=== PATIENT | male | born 1980 | race African-American/Black ===

== ENCOUNTER 2016-08-13 15:57 | Inpatient (IN) | payer OTHER ==
[2016-08-13 16:51] VITALS: BMI 17.2
--- NOTE | 2016-08-13 17:44 | HP ---
CIWA Score - CIWA Score Nausea/Vomitin Muscle Tremors: 4-Moderate,w/Arms Extend Anxiety: 4-Mod. Anxious/Guarded Agitation: 4-Moderately Restless Paroxysmal Sweats: 3 Orientation: 2-Disoriented Date<2 days Tacttile Disturbances: 0-None Auditory Disturbances: 0-None Visual Disturbances: 0-None Headache: 0-None Present CIWA-Ar Total Score: 19 Admission ROS BHS - HPI Chief Complaint: Withdrawal sx. Allergies/Adverse Reactions: Allergies Allergy/AdvReac Type Severity Reaction Status Date / Time No Known Allergies Allergy Verified 08/13/16 17:00 History of Present Illness: 36 y/o man with a long hx. of alcoholism is admitted for detox.Pt. denies previous detox. Exam Limitations: No Limitations - Ebola screening Have you traveled outside of the country in the last 21 days: No Have you had contact with anyone from an Ebola affected area: No Have you been sick,other than usual withdrawal symptoms: No Do you have a fever: No - Review of Systems Constitutional: Diaphoresis EENT: reports: No Symptoms Reported Respiratory: reports: No Symptoms reported Cardiac: reports: No Symptoms Reported GI: reports: Nausea, Abdominal cramping : reports: No Symptoms Reported Musculoskeletal: reports: Back Pain Integumentary: reports: Sweating Neuro: reports: Seizure (1 1/2 year ago), Tremors Endocrine: reports: No Symptoms Reported Hematology: reports: No Symptoms Reported Psychiatric: reports: No Sypmtoms Reported Other Systems: Reviewed and Negative Patient History - Patient Medical History Hx Anemia: No Hx Asthma: No Hx Chronic Obstructive Pulmonary Disease (COPD): No Hx Cancer: No Hx Cardiac Disorders: No Hx Congestive Heart Failure: No Hx Hypertension: No Hx Hypercholesterolemia: Yes (no meds) Hx Pacemaker: No HX Cerebrovascular Accident: No Hx Seizures: Yes (etoh related seizure last 1 yr ago) Hx Dementia: No Hx Diabetes: No Hx Gastrointestinal Disorders: No Hx Liver Disease: No Hx Genitourinary Disorders: No Hx Sexually Transmitted Disorders: No Hx Renal Disease (ESRD): No Hx Thyroid Disease: No Hx Human Immunodeficiency Virus (HIV): No Hx Hepatitis C: No Hx Depression: No Hx Suicide Attempt: No Hx Bipolar Disorder: No Hx Schizophrenia: No Other Medical History: Low back pain by hx. - Patient Surgical History Past Surgical History: No - PPD History Previous Implant?: Yes Documented Results: Negative w/o proof Implanted On Prior [facility] Admission?: No PPD to be Administered?: Yes - Smoking Cessation Smoking history: Current every day smoker Have you smoked in the past 12 months: Yes Aproximately how many cigarettes per day: 10 Hx Chewing Tobacco Use: No Initiated information on smoking cessation: Yes 'Breaking Loose' booklet given: 08/13/16 - Substance & Tx. History Hx Alcohol Use: Yes Hx Substance Use: No Substance Use Type: Alcohol Hx Substance Use Treatment: No - Substances Abused Alcohol Route: Oral Frequency: Daily Amount used: 1/2 PINT ANGEL/ 2 16 OZ CANS Age of first use: 10 Date of Last Use: 08/13/16 Family Disease History - Family Disease History Family Disease History: Other: Father (Alcoholic), Mother (Alcohol use) Admission Physical Exam [facility] - Vital Signs Vital Signs: Vital Signs - 24 hr 08/13/16 16:49 Temperature 98.1 F Pulse Rate 80 Respiratory 18 Rate Blood Pressure 117/86 - Physical General Appearance: Yes: Alcohol on Breath, Thin, Tremorous, Irritable, Sweating , Anxious HEENTM: Yes: Within Normal Limits Respiratory: Yes: Chest Non-Tender, Lungs Clear, Normal Breath Sounds Neck: Yes: Supple Breast: Yes: Breast Exam Deferred Cardiology: Yes: Regular Rhythm, Regular Rate, S1, S2 Abdominal: Yes: Normal Bowel Sounds, Non Tender, Soft Genitourinary: Yes: Within Normal Limits Back: Yes: Within Normal Limits Musculoskeletal: Yes: Within Normal Limits Extremities: Yes: Tremors Neurological: Yes: Fully Oriented, Alert Integumentary: Yes: Diaphoresis Lymphatic: Yes: Within Normal Limits - Diagnostic (1) Alcohol dependence with uncomplicated withdrawal Current Visit: Yes Status: Acute (2) Low back pain Current Visit: Yes Status: Acute Qualifiers: Chronicity: chronic Back pain laterality: bilateral Sciatica presence: with sciatica Sciatica laterality: bilateral sciatica Qualified Code(s): M54.42 - Lumbago with sciatica, left side; M54.41 - Lumbago with sciatica, right side; G89.29 - Other chronic pain Cleared for Admission [facility] - Detox or Rehab [facility] Level of Care: Medically Managed Detox Regimen/Protocol: Librium [facility] Breath Alcohol Content Breath Alcohol Content: 0.103 Urine Drug Screen - Results Drug Screen Negative: Yes
[2016-08-13] MEDS ORDERED: IBUPROFEN 400 MG TABLET (FP) PO PRN (17:51)
[2016-08-13] MEDS ORDERED: LOPERAMIDE HCL 2 MG CAPSULE PO PRN (17:51)
[2016-08-13] MEDS ORDERED: MAGNESIUM HYDROX 2400MG/30ML ORAL SUSPENSION 30 ML CUP PO PRN (17:51)
[2016-08-13] MEDS ORDERED: ACETAMINOPHEN 325 MG TABLET (FP) PO PRN (17:51)
[2016-08-13] MEDS ORDERED: MENTHOL/PHENOL 1 EACH UD MM PRN (17:51)
[2016-08-13] MEDS ORDERED: guaiFENesin/D-METHORPHAN HB 10 ML UNIT-DOSE CUPS PO PRN (17:51)
[2016-08-13] MEDS ORDERED: P-EPHED 60MG/TRIPROLIDI 2.5MG TABLET PO PRN (17:51)
[2016-08-13] MEDS ORDERED: MAGNESIUM CITRATE 300 ML BOTTLE PO PRN (17:51)
[2016-08-13] MEDS ORDERED: MAG HYDROX/AL HYDROX/SIMETH 30 ML UNIT-DOSE CUP PO PRN (17:51)
[2016-08-13] MEDS ORDERED: diphenhydrAMINE HCL 50 MG CAPSULE PO PRN (17:51)
[2016-08-13] MEDS ORDERED: chlordiazePOXIDE HCL 25 MG CAPSULE PO ONE (18:15)
[2016-08-13] MEDS: NICOTINE POLACRILEX 2 MG GUM BC PRN (19:19)
[2016-08-13] MEDS: NICOTINE 21 MG/24 HOURS TOPICAL PATCH TD SCH (19:21)
[2016-08-13] MEDS: chlordiazePOXIDE HCL 25 MG CAPSULE PO SCH (22:37)
[2016-08-13] MEDS: THIAMINE HCL 100 MG TABLET (FP) PO SCH (22:37)
[2016-08-14] MEDS: chlordiazePOXIDE HCL 25 MG CAPSULE PO SCH ×4 (05:40→22:38)
[2016-08-14] MEDS: hydrOXYzine PAMOATE 50 MG CAPSULE (FP) PO PRN (07:57)
[2016-08-14] MEDS: chlordiazePOXIDE HCL 25 MG CAPSULE PO PRN (07:58)
--- NOTE | 2016-08-14 09:10 | PN ---
BHS CIWA - CIWA Score Nausea/Vomitin Muscle Tremors: 3 Anxiety: 3 Agitation: 3 Paroxysmal Sweats: 1-Minimal Palms Moist Orientation: 0-Oriented Tacttile Disturbances: 1-Very Mild Itch/Numbness Auditory Disturbances: 1-Very Mild Visual Disturbances: 1-Very Mild Sensitivity Headache: 2-Mild CIWA-Ar Total Score: 18 BHS Progress Note (SOAP) Subjective: ALERT,IRRITABLE,ANXIOUS,INTERRUPTED SLEEP Objective: 08/14/16 09:07 08/14/16 09:07 Vital Signs Temperature 97.5 F L 08/14/16 06:46 Pulse Rate 70 08/14/16 06:46 Respiratory Rate 16 08/14/16 06:46 Blood Pressure 85/59 08/14/16 06:46 O2 Sat by Pulse Oximetry (%) EKG NSR,NORMAL ECG LABS PENDING Assessment: 08/14/16 09:08 WITHDRAWAL SYMPTOM Plan: CONTINUE DETOX,HISTORY OF DEPRESSION WILL GET PSYCHIATRIC EVALUATION,MOTRIN 600 MGD PO Q 6 HRS FOR PAIN,FLEXERIL 10 MGS PO TID PRN
[2016-08-14] MEDS: CYCLOBENZAPRINE HCL 10 MG TABLET (FP) PO PRN (10:46)
[2016-08-14] MEDS: IBUPROFEN 600 MG TABLET (FP) PO PRN (10:46)
[2016-08-14] MEDS: PRENATAL VITAMINS W/ FOLIC ACID TABLET (FP) PO SCH (10:46)
[2016-08-14] MEDS: NICOTINE 21 MG/24 HOURS TOPICAL PATCH TD SCH (10:47)
[2016-08-14 10:54] LABS: MCH 32.8 pg (25.7-33.7); MCHC 33.3 g/dl (32.0-35.9); MEAN CELL VOLUME 98.5 fl (80-96); MEAN PLT VOLUME 9.6 fl (7.5-11.1); PLATELET COUNT 201 K/MM3 (134-434); RDW 15.4 % (11.9-15.9); WHITE BLOOD COUNT 6.1 K/mm3 (4.0-10.0)
[2016-08-14 11:08] LABS: ALBUMIN 3.4 g/dl (3.4-5.0); ALK PHOS 279 U/L (45-117); ANION GAP 9 (8-16); BILIRUBIN,TOTAL 1.4 mg/dL (0.2-1.0); CALCIUM 8.6 mg/dL (8.5-10.1); CO2 28 mmol/L (21-32); COCKROFT - GAULT 130.2; CREATININE 0.6 mg/dL (0.7-1.3); GLUCOSE,RANDOM 83 mg/dL (74-106); SGOT/AST 219 U/L (15-37); SGPT/ALT 129 U/L (12-78); TOT PROT 6.6 g/dl (6.4-8.2)
--- NOTE | 2016-08-14 11:20 | CONSULT ---
[facility] Psychiatric Consult - Data Date of interview: 08/14/16 Admission source: [facility] Identifying data: This is 36 years old male with no psychiatric hospitalization history intoxicated with Alcohol and Opioids Substance Abuse History: - Smoking Cessation. Smoking history: Current every day smoker. Have you smoked in the past 12 months: Yes. Aproximately how many cigarettes per day: 10. Hx Chewing Tobacco Use: No. Initiated information on smoking cessation: Yes. 'Breaking Loose' booklet given: 08/13/16. - Substance & Tx. History. Hx Alcohol Use: Yes. Hx Substance Use: No. Substance Use Type : Alcohol. Hx Substance Use Treatment: No. - Substances Abused. Alcohol. Route: Oral. Frequency: Daily. Amount used: 1/2 P[place]GEL/ 2 16 OZ CANS. Age of first use: 10. Date of Last Use: 08/13/16 Medical History: Patient reprots LBP issues , reports on pain management for a long time Psychiatric History: Patoient reports insomnia,m asking for medications , reports he is out of pain management medications and , probably, acan not fall asleep due to opioid withdrawal as well Physical/Sexual Abuse/Trauma History: Denies Additional Comment: Seroquel 100mg po qhs Mental Status Exam - Mental Status Exam Alert and Oriented to: Person Cognitive Function: Fair Patient Appearance: Unkempt Mood: Apprehensive Affect: Mood Congruent Patient Behavior: Cooperative Speech Pattern: Appropriate Voice Loudness: Mildly Soft/Quiet Thought Process: Goal Oriented Thought Disorder: Being Controlled Hallucinations: Denies Suicidal Ideation: Denies Homicidal Ideation: Denies Insight/Judgement: Fair Sleep: Difficulty falling asleep Appetite: Weight loss Muscle strength/Tone: Normal Gait/Station: Normal Additional Comments: - Smoking Cessation. Smoking history: Current every day smoker. Have you smoked in the past 12 months: Yes. Aproximately how many cigarettes per day: 10. Hx Chewing Tobacco Use: No. Initiated information on smoking cessation: Yes. 'Breaking Loose' booklet given: 08/13/16. - Substance & Tx. History. Hx Alcohol Use: Yes. Hx Substance Use: No. Substance Use Type : Alcohol. Hx Substance Use Treatment: No. - Substances Abused. Alcohol. Route: Oral. Frequency: Daily. Amount used: 1/2 P[place]EL/ 2 16 OZ CANS. Age of first use: 10. Date of Last Use: 08/13/16 Psychiatric Findings - Problem List ([place] 1, 2,3) (1) Opioid dependence Current Visit: Yes Status: Acute (2) Alcohol induced insomnia Current Visit: Yes Status: Acute (3) Alcohol-induced mood disorder Current Visit: Yes Status: Acute - Initial Treatment Plan Initial Treatment Plan: Seroquel 100mg po qhs
--- NOTE | 2016-08-14 11:33 | PN ---
[facility] Progress Note Note: Laboratory Last Values WBC 6.1 K/mm3 (4.0-10.0) 08/14/16 07:00 RBC 2.97 M/mm3 (4.00-5.60) L 08/14/16 07:00 Hgb 9.7 GM/dL (11.7-16.9) L 08/14/16 07:00 Hct 29.3 % (35.4-49) L 08/14/16 07:00 MCV 98.5 fl (80-96) H 08/14/16 07:00 MCHC 33.3 g/dl (32.0-35.9) 08/14/16 07:00 RDW 15.4 % (11.9-15.9) 08/14/16 07:00 Plt Count 201 K/MM3 (134-434) 08/14/16 07:00 MPV 9.6 fl (7.5-11.1) 08/14/16 07:00 Sodium 142 mmol/L (136-145) 08/14/16 07:00 Potassium 3.6 mmol/L (3.5-5.1) 08/14/16 07:00 Chloride 105 mmol/L (98-107) 08/14/16 07:00 Carbon Dioxide 28 mmol/L (21-32) 08/14/16 07:00 Anion Gap 9 (8-16) 08/14/16 07:00 BUN 13 mg/dL (7-18) 08/14/16 07:00 Creatinine 0.6 mg/dL (0.7-1.3) L 08/14/16 07:00 Creat Clearance w eGFR > 60 (>60) 08/14/16 07:00 Random Glucose 83 mg/dL (74-106) 08/14/16 07:00 Calcium 8.6 mg/dL (8.5-10.1) 08/14/16 07:00 Total Bilirubin 1.4 mg/dL (0.2-1.0) H 08/14/16 07:00 AST 219 U/L (15-37) H 08/14/16 07:00 ALT 129 U/L (12-78) H 08/14/16 07:00 Alkaline Phosphatase 279 U/L (45-117) H 08/14/16 07:00 Total Protein 6.6 g/dl (6.4-8.2) 08/14/16 07:00 Albumin 3.4 g/dl (3.4-5.0) 08/14/16 07:00 START ON FERROUS SULFATE 325 MGS PO BID D/C TYLENOL REPEAT ABC,CMP,INR N AM
--- NOTE | 2016-08-14 12:33 | EKG ---
Test Reason : Blood Pressure : / mmHG Vent. Rate : 071 BPM Atrial Rate : 072 BPM P-R Int : 126 ms QRS Dur : 096 ms QT Int : 396 ms P-R-T Axes : 071 081 067 degrees QTc Int : 430 ms NORMAL SINUS RHYTHM NORMAL ECG NO PREVIOUS ECGS AVAILABLE Confirmed by ANJANA CAM MD ([id number]) on 08/14/2016 12:32:28 PM Referred By: Confirmed By:ANJANA CAM MD
[2016-08-14] MEDS: FERROUS SO4 325 MG TABLET (FP) PO SCH ×2 (13:42→22:38)
[2016-08-14] MEDS: NICOTINE POLACRILEX 2 MG GUM BC PRN (15:20)
[2016-08-14] MEDS: QUEtiapine FUMARATE 100 MG TABLET (FP) PO SCH (22:38)
[2016-08-14] MEDS: THIAMINE HCL 100 MG TABLET (FP) PO SCH (22:39)
[2016-08-15] MEDS: chlordiazePOXIDE HCL 25 MG CAPSULE PO SCH ×3 (05:01→16:51)
[2016-08-15] MEDS: NICOTINE POLACRILEX 2 MG GUM BC PRN ×3 (07:52→22:54)
--- NOTE | 2016-08-15 09:59 | PN ---
S CIWA - CIWA Score Nausea/Vomitin Muscle Tremors: 3 Anxiety: 3 Agitation: 2 Paroxysmal Sweats: 2 Orientation: 0-Oriented Tacttile Disturbances: 1-Very Mild Itch/Numbness Auditory Disturbances: 1-Very Mild Visual Disturbances: 1-Very Mild Sensitivity Headache: 2-Mild CIWA-Ar Total Score: 18 BHS Progress Note (SOAP) Subjective: ALERT,IRRITABLE,ANXIOUS,INTERRUPTED SLEEP,TREMOR Objective: 08/15/16 09:58 Vital Signs Temperature 96.4 F L 08/15/16 04:00 Pulse Rate 78 08/15/16 04:00 Respiratory Rate 18 08/15/16 04:00 Blood Pressure 92/56 08/15/16 04:00 O2 Sat by Pulse Oximetry (%) Assessment: 08/15/16 09:58 WITHDRAWAL SYMPTOM Plan: CONTINUE DETOX,REPEAT CBC,CMP,INR IN AM
[2016-08-15] MEDS: NICOTINE 21 MG/24 HOURS TOPICAL PATCH TD SCH (10:21)
[2016-08-15] MEDS: PRENATAL VITAMINS W/ FOLIC ACID TABLET (FP) PO SCH (10:21)
[2016-08-15] MEDS: FERROUS SO4 325 MG TABLET (FP) PO SCH ×2 (10:21→22:43)
[2016-08-15 11:27] LABS: MCH 32.2 pg (25.7-33.7); MCHC 32.6 g/dl (32.0-35.9); MEAN CELL VOLUME 98.8 fl (80-96); MEAN PLT VOLUME 9.4 fl (7.5-11.1); PLATELET COUNT 205 K/MM3 (134-434); RDW 15.5 % (11.9-15.9); WHITE BLOOD COUNT 5.6 K/mm3 (4.0-10.0)
[2016-08-15 11:39] LABS: INR 0.89 (0.82-1.09); PROTHROMBIN TIME (PATIENT) 9.8 SEC (9.98-11.88)
[2016-08-15 11:48] LABS: ALBUMIN 3.1 g/dl (3.4-5.0); ALK PHOS 257 U/L (45-117); ANION GAP 9 (8-16); CALCIUM 8.8 mg/dL (8.5-10.1); CO2 26 mmol/L (21-32); COCKROFT - GAULT 156.2; CREATININE 0.5 mg/dL (0.7-1.3); GLUCOSE,RANDOM 85 mg/dL (74-106); SGOT/AST 160 U/L (15-37); SGPT/ALT 110 U/L (12-78); TOT PROT 6.2 g/dl (6.4-8.2)
[2016-08-15] MEDS: chlordiazePOXIDE 5 MG CAPSULE PO SCH (22:43)
[2016-08-15] MEDS: QUEtiapine FUMARATE 100 MG TABLET (FP) PO SCH (22:43)
[2016-08-15] MEDS: THIAMINE HCL 100 MG TABLET (FP) PO SCH (22:44)
[2016-08-16] MEDS: chlordiazePOXIDE 5 MG CAPSULE PO SCH ×3 (06:35→17:31)
[2016-08-16] MEDS: hydrOXYzine PAMOATE 50 MG CAPSULE (FP) PO PRN (07:44)
[2016-08-16] MEDS: CYCLOBENZAPRINE HCL 10 MG TABLET (FP) PO PRN (07:44)
[2016-08-16] MEDS: IBUPROFEN 600 MG TABLET (FP) PO PRN ×2 (07:44→13:56)
[2016-08-16] MEDS: NICOTINE POLACRILEX 2 MG GUM BC PRN ×2 (07:50→14:29)
[2016-08-16] MEDS: chlordiazePOXIDE HCL 25 MG CAPSULE PO PRN ×2 (07:59→13:58)
[2016-08-16] MEDS ORDERED: QUEtiapine FUMARATE 50 MG TABLET PO SCH (11:11)
[2016-08-16] MEDS: PRENATAL VITAMINS W/ FOLIC ACID TABLET (FP) PO SCH (11:14)
[2016-08-16] MEDS: FERROUS SO4 325 MG TABLET (FP) PO SCH ×2 (11:15→22:35)
[2016-08-16] MEDS: NICOTINE 21 MG/24 HOURS TOPICAL PATCH TD SCH (11:15)
[2016-08-16] MEDS ORDERED: LIDOCAINE 5% TOPICAL PATCH TP SCH (11:45)
--- NOTE | 2016-08-16 12:58 | PN ---
Psychiatric Progress Note Vital Signs: Vital Signs Period Temp Pulse Resp BP Sys/Chin Pulse Ox Last 24 Hr 97.5 F-98.4 F 79-120 18-20 94-115/50-75 Date of Session: 08/16/16 Chief Complaint:: Insomnia HPI: Mk reports insomnia and asking to rase up his Seroquel to 150mg po qhs Current Medications: Active Medications Generic Name Dose Route Start Last Admin Trade Name Freq PRN Reason Stop Dose Admin Al Hydroxide/Mg Hydroxide 30 ml 08/13/16 17:51 08/15/16 22:44 Mylanta Oral Suspension - PO 30 ml Q6H PRN Administration DYSPEPSIA Chlordiazepoxide HCl 10 mg 08/16/16 23:00 Librium - PO 08/17/16 17:01 [id number] NAINA Chlordiazepoxide HCl 25 mg 08/13/16 17:51 08/16/16 07:59 Librium - PO 08/16/16 17:50 25 mg Q4H PRN Administration WITHDRAWAL(CONT SUBST) Chlordiazepoxide HCl 15 mg 08/15/16 23:00 08/16/16 11:15 Librium - PO 08/16/16 17:01 15 mg [id number] NAINA Administration Cyclobenzaprine HCl 10 mg 08/14/16 09:03 08/16/16 07:44 Flexeril - PO 10 mg TID PRN Administration MUSCLE SPASMS Diphenhydramine HCl 50 mg 08/13/16 17:51 Benadryl - PO HSMR1 PRN INSOMNIA Eucalyptus/Menthol/Phenol/Sorbitol 1 each 08/13/16 17:51 Cepastat Lozenge - MM Q4H PRN SORE THROAT Ferrous Sulfate 325 mg 08/14/16 11:30 08/16/16 11:15 Feosol - PO 325 mg BID NAINA Administration Guaifenesin 10 ml 08/13/16 17:51 Robitussin Dm - PO Q6H PRN COUGH Hydroxyzine Pamoate 50 mg 08/13/16 17:51 08/16/16 07:44 Vistaril - PO 50 mg Q4H PRN Administration AGITATION Ibuprofen 600 mg 08/14/16 09:03 08/16/16 07:44 Motrin - PO 600 mg Q6H PRN Administration PAIN Lidocaine 1 patch 08/16/16 11:45 Lidoderm Patch - TP DAILY NAINA Loperamide HCl 4 mg 08/13/16 17:51 Imodium - PO Q6H PRN DIARRHEA Magnesium Citrate 300 ml 08/13/16 17:51 Citroma - PO Q48H PRN CONSTIPATION Magnesium Hydroxide 30 ml 08/13/16 17:51 Milk Of Magnesia - PO DAILY PRN CONSTIPATION Nicotine 21 mg 08/13/16 18:30 08/16/16 11:15 Nicoderm Patch - TD 21 mg DAILY NAINA Administration Nicotine Polacrilex 2 mg 08/13/16 17:51 08/16/16 07:50 Nicorette Gum - BC 2 mg Q2H PRN Administration NICOTINE REPLACEMENT RX Multivit/Folic Acid/Iron 1 tab 08/14/16 10:00 08/16/16 11:14 Vitamins ([facility]) - PO 1 tab DAILY NAINA Administration Pseudoephedrine/Triprolidine 1 combo 08/13/16 17:51 Actifed - PO TID PRN NASAL CONGESTION Quetiapine Fumarate 150 mg 08/16/16 11:11 Seroquel - PO HS NAINA Thiamine HCl 100 mg 08/13/16 22:00 08/15/16 22:44 Vitamin B1 - PO 100 mg HS NAINA Administration Medication(s) Change(s): Seroquel to 150mg po qhs Mental Status Exam - Mental Status Exam Alert and Oriented to: Person Cognitive Function: Fair Patient Appearance: Well Groomed Mood: Anxious Affect: Mood Congruent Patient Behavior: Cooperative Speech Pattern: Appropriate Voice Loudness: Mildly Soft/Quiet Thought Process: Goal Oriented Thought Disorder: Being Controlled Hallucinations: Denies Suicidal Ideation: Denies Homicidal Ideation: Denies Insight/Judgement: Fair Sleep: Difficulty falling asleep Appetite: Weight loss Muscle strength/Tone: Normal Gait/Station: Normal Additional Comments: Seroquel to 150mg po qhs Psychiatric Treatment Plan - Problem List (1) Opioid dependence Current Visit: Yes (2) Alcohol induced insomnia Current Visit: Yes (3) Alcohol-induced mood disorder Current Visit: Yes (4) Alcohol-induced sleep disorder Current Visit: Yes Initial treatment plan: Seroquel 150mg po qhs
--- NOTE | 2016-08-16 16:46 | PN ---
BHS Progress Note (SOAP) Subjective: Tremors, Body aches, H/A, Interrupted sleep. Objective: PT. A & OX 2 (DISORIENTED ABOUT DAY / DATE). PT. OBSERVED AMBULATING ON UNIT. 08/16/16 16:45 Vital Signs Temperature 98.1 F 08/16/16 14:24 Pulse Rate 109 H 08/16/16 14:24 Respiratory Rate 18 08/16/16 14:24 Blood Pressure 109/61 08/16/16 14:24 O2 Sat by Pulse Oximetry (%) Laboratory Last Values WBC 5.6 K/mm3 (4.0-10.0) 08/15/16 07:00 RBC 2.96 M/mm3 (4.00-5.60) L 08/15/16 07:00 Hgb 9.5 GM/dL (11.7-16.9) L 08/15/16 07:00 Hct 29.2 % (35.4-49) L 08/15/16 07:00 MCV 98.8 fl (80-96) H 08/15/16 07:00 MCHC 32.6 g/dl (32.0-35.9) 08/15/16 07:00 RDW 15.5 % (11.9-15.9) 08/15/16 07:00 Plt Count 205 K/MM3 (134-434) 08/15/16 07:00 MPV 9.4 fl (7.5-11.1) 08/15/16 07:00 INR 0.89 (0.82-1.09) 08/15/16 07:00 Sodium 143 mmol/L (136-145) 08/15/16 07:00 Potassium 3.5 mmol/L (3.5-5.1) 08/15/16 07:00 Chloride 108 mmol/L (98-107) H 08/15/16 07:00 Carbon Dioxide 26 mmol/L (21-32) 08/15/16 07:00 Anion Gap 9 (8-16) 08/15/16 07:00 BUN 7 mg/dL (7-18) D 08/15/16 07:00 Creatinine 0.5 mg/dL (0.7-1.3) L 08/15/16 07:00 Creat Clearance w eGFR > 60 (>60) 08/15/16 07:00 Random Glucose 85 mg/dL (74-106) 08/15/16 07:00 Calcium 8.8 mg/dL (8.5-10.1) 08/15/16 07:00 Total Bilirubin 1.0 mg/dL (0.2-1.0) D 08/15/16 07:00 AST 160 U/L (15-37) H D 08/15/16 07:00 ALT 110 U/L (12-78) H 08/15/16 07:00 Alkaline Phosphatase 257 U/L (45-117) H 08/15/16 07:00 Total Protein 6.2 g/dl (6.4-8.2) L 08/15/16 07:00 Albumin 3.1 g/dl (3.4-5.0) L 08/15/16 07:00 RPR Titer Nonreactive (NONREACTIVE) 08/14/16 07:00 LABS NOTED. Assessment: 08/16/16 16:45 WITHDRAWAL SYMPTOMS. Plan: CONTINUE DETOX. ADVISED PATIENT TO FOLLOW-UP WITH [facility] / REHAB MEDICAL PROVIDER AFTER DISCHARGE FROM DETOX FOR GENERAL MEDICAL ASSESSMENT AND FOR ABNORMAL ADMISSION LAB VALUES.
[2016-08-16 21:49] LABS: URINE APPEARANCE CLEAR; URINE BILIRUBIN NEGATIVE (NEGATIVE); URINE BLOOD NEGATIVE (NEGATIVE); URINE COLOR YELLOW; URINE GLUCOSE (UA) NEGATIVE (NEGATIVE); URINE KETONE NEGATIVE (NEGATIVE); URINE LEUK ESTERASE NEGATIVE (NEGATIVE); URINE NITRITE NEGATIVE (NEGATIVE); URINE PROTEIN NEGATIVE (NEGATIVE); URINE UROBILINOGEN NEGATIVE E.U./dl (0.2-1.0)
[2016-08-16] MEDS: chlordiazePOXIDE HCL 10 MG CAPSULE PO SCH (22:35)
[2016-08-16] MEDS: THIAMINE HCL 100 MG TABLET (FP) PO SCH (22:35)
[2016-08-17] MEDS: chlordiazePOXIDE HCL 10 MG CAPSULE PO SCH (05:47)
[2016-08-17] MEDS: NICOTINE POLACRILEX 2 MG GUM BC PRN (05:49)
[2016-08-17] MEDS: IBUPROFEN 600 MG TABLET (FP) PO PRN (05:50)
[2016-08-17 06:36] VITALS: BP 111/76; PULSE 95; TEMP 97.7
[2016-08-17] MEDS: PRENATAL VITAMINS W/ FOLIC ACID TABLET (FP) PO SCH (09:49)
[2016-08-17] MEDS: FERROUS SO4 325 MG TABLET (FP) PO SCH (09:50)
--- NOTE | 2016-08-17 12:41 | DS ---
[facility] Detox Discharge Summary Admission Date: 08/13/16 Discharge Date: 08/17/16 - History Present History: Alcohol Dependence Pertinent Past History: low back pain - Physical Exam Results Vital Signs: Vital Signs Temperature 97.7 F 08/17/16 06:00 Pulse Rate 95 H 08/17/16 06:00 Respiratory Rate 16 08/17/16 06:00 Blood Pressure 111/76 08/17/16 06:00 O2 Sat by Pulse Oximetry (%) Pertinent Admission Physical Exam Findings: Withdrawal sx. Laboratory Last Values WBC 5.6 K/mm3 (4.0-10.0) 08/15/16 07:00 RBC 2.96 M/mm3 (4.00-5.60) L 08/15/16 07:00 Hgb 9.5 GM/dL (11.7-16.9) L 08/15/16 07:00 Hct 29.2 % (35.4-49) L 08/15/16 07:00 MCV 98.8 fl (80-96) H 08/15/16 07:00 MCHC 32.6 g/dl (32.0-35.9) 08/15/16 07:00 RDW 15.5 % (11.9-15.9) 08/15/16 07:00 Plt Count 205 K/MM3 (134-434) 08/15/16 07:00 MPV 9.4 fl (7.5-11.1) 08/15/16 07:00 INR 0.89 (0.82-1.09) 08/15/16 07:00 Sodium 143 mmol/L (136-145) 08/15/16 07:00 Potassium 3.5 mmol/L (3.5-5.1) 08/15/16 07:00 Chloride 108 mmol/L (98-107) H 08/15/16 07:00 Carbon Dioxide 26 mmol/L (21-32) 08/15/16 07:00 Anion Gap 9 (8-16) 08/15/16 07:00 BUN 7 mg/dL (7-18) D 08/15/16 07:00 Creatinine 0.5 mg/dL (0.7-1.3) L 08/15/16 07:00 Creat Clearance w eGFR > 60 (>60) 08/15/16 07:00 Random Glucose 85 mg/dL (74-106) 08/15/16 07:00 Calcium 8.8 mg/dL (8.5-10.1) 08/15/16 07:00 Total Bilirubin 1.0 mg/dL (0.2-1.0) D 08/15/16 07:00 AST 160 U/L (15-37) H D 08/15/16 07:00 ALT 110 U/L (12-78) H 08/15/16 07:00 Alkaline Phosphatase 257 U/L (45-117) H 08/15/16 07:00 Total Protein 6.2 g/dl (6.4-8.2) L 08/15/16 07:00 Albumin 3.1 g/dl (3.4-5.0) L 08/15/16 07:00 Urine Color Yellow 08/16/16 19:00 Urine Appearance Clear 08/16/16 19:00 Urine pH 5.0 (5.0-8.0) 08/16/16 19:00 Ur Specific [place] 1.018 (1.001-1.035) 08/16/16 19:00 Urine Protein Negative (NEGATIVE) 08/16/16 19:00 Urine Glucose (UA) Negative (NEGATIVE) 08/16/16 19:00 Urine Ketones Negative (NEGATIVE) 08/16/16 19:00 Urine Blood Negative (NEGATIVE) 08/16/16 19:00 Urine Nitrite Negative (NEGATIVE) 08/16/16 19:00 Urine Bilirubin Negative (NEGATIVE) 08/16/16 19:00 Urine Urobilinogen Negative E.U./dl (0.2-1.0) 08/16/16 19:00 Ur Leukocyte Esterase Negative (NEGATIVE) 08/16/16 19:00 RPR Titer Nonreactive (NONREACTIVE) 08/14/16 07:00 labs noted - Treatment Hospital Course: Detox Protocol Followed, Detoxed Safely, Responded well, Discharged Condition Good, Rehab Referral Accepted Patient has Accepted a Rehab Referral to: [facility] rehab - Medication Discharge Medications: Ambulatory Orders Quetiapine Fumarate [Seroquel] 100 mg PO HS #30 tab 08/14/16 - Diagnosis (1) Alcohol dependence with uncomplicated withdrawal Status: Acute (2) Low back pain Status: Acute Qualifiers: Chronicity: chronic Back pain laterality: bilateral Sciatica presence: with sciatica Sciatica laterality: bilateral sciatica Qualified Code(s): M54.42 - Lumbago with sciatica, left side (3) Alcohol induced insomnia Status: Acute (4) Alcohol-induced mood disorder Status: Acute (5) Alcohol-induced sleep disorder Status: Acute - AMA Did Patient Leave Against Medical Advice: No
== END 2016-08-17 09:50 | disposition home or self-care (01) | DRG 775 ==
LOC: YASAS 15:57 → Y6N 17:25
PROVIDERS: ADMIT Internal Medicine Addiction Medicine; ATTEND Internal Medicine Addiction Medicine
PROC: HZ2ZZZZ Detoxification Services for Substance Abuse Treatment (ICD-10-PCS; principal; 2016-08-13)
DX: F10.230 Alcohol dependence with withdrawal, uncomplicated (principal); F10.24 Alcohol dependence with alcohol-induced mood disorder; F10.282 Alcohol dependence with alcohol-induced sleep disorder; F17.210 Nicotine dependence, cigarettes, uncomplicated; M54.41 Lumbago with sciatica, right side; M54.42 Lumbago with sciatica, left side; G89.29 Other chronic pain; Z86.69 Personal history of other diseases of the nervous system and sense organs
CPT/HCPCS: 36415; 80053; 81003; 85027; 85610; 86593; 93005; 93010

== ENCOUNTER 2018-11-19 10:08 | Inpatient (IN) | payer OTHER | END 2018-11-21 10:58 | disposition left against medical advice (07) | LOC: YASAS 10:08 → Y3N 13:16 ==

== ENCOUNTER 2019-05-12 14:50 | Inpatient (IN) | payer OTHER ==
[2019-05-12 18:52] VITALS: BMI 19.2
--- NOTE | 2019-05-12 20:14 | HP ---
CIWA Score - Admission Criteria OASAS Guidelines: Admission for Medically Managed Detox: Requires at least one of the followin. CIWA greater than 12 2. Seizures within the past 24 hours 3. Delirium tremens within the past 24 hours 4. Hallucinations within the past 24 hours 5. Acute intervention needed for co occurring medical disorder 6. Acute intervention needed for co occurring psychiatric disorder 7. Severe withdrawal that cannot be handled at a lower level of care (continued vomiting, continued diarrhea, abnormal vital signs) requiring intravenous medication and/or fluids 8. Admitting History and Physical - Admission Chief Complaint: "I'm here for rehab". 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 Pt states he was admitted 05/11/19 and discharged today. Pt is a poor history unable to elaborate on the reason he was admitted at [facility]. Pt states that his last alcohol use was on 05/06/19. Denies any psych history. Denies any feelings of depression, SI/HI at this time. History Source: Patient Limitations to Obtaining History: No Limitations - Past Medical History Pulmonary: Yes: Asthma - Smoking History Smoking history: Smoker current status UNK Have you smoked in the past 12 months: Yes Aproximately how many cigarettes per day: 30 - Alcohol/Substance Use Hx Alcohol Use: Yes History of Substance Use: reports: None - Social History Usual Living Arrangement: Yes: Other (Lives with his grandmother.) Do you think of yourself as: Straight/Heterosexual ADL: Independent History of Recent Travel: No Admission ROS [facility] Allergies/Adverse Reactions: Allergies Allergy/AdvReac Type Severity Reaction Status Date / Time No Known Allergies Allergy Verified 05/12/19 18:34 Exam Limitations: No Limitations - Ebola screening Have you traveled outside of the country in the last 21 days: No Have you had contact with anyone from an Ebola affected area: No Have you been sick,other than usual withdrawal symptoms: No Do you have a fever: No - Review of Systems Constitutional: No Symptoms Reported EENT: reports: No Symptoms Reported Respiratory: reports: No Symptoms reported Cardiac: reports: No Symptoms Reported GI: reports: No Symptoms Reported : reports: No Symptoms Reported Musculoskeletal: reports: No Symptoms Reported Integumentary: reports: No Symptoms Reported Neuro: reports: No Symptoms reported Endocrine: reports: No Symptoms Reported Hematology: reports: No Symptoms Reported Psychiatric: reports: Judgement Intact, Mood/Affect Appropiate Other Systems: Reviewed and Negative Patient History - Patient Medical History Hx Anemia: No Hx Asthma: Yes Hx Chronic Obstructive Pulmonary Disease (COPD): No Hx Cancer: No Hx Cardiac Disorders: No Hx Congestive Heart Failure: No Hx Hypertension: No Hx Hypercholesterolemia: No Hx Pacemaker: No HX Cerebrovascular Accident: No Hx Seizures: Yes (etoh related seizure last 1.5 yrs ago) Hx Dementia: No Hx Diabetes: No Hx Gastrointestinal Disorders: No Hx Liver Disease: No Hx Genitourinary Disorders: No Hx Sexually Transmitted Disorders: No Hx Renal Disease (ESRD): No Hx Thyroid Disease: No Hx Human Immunodeficiency Virus (HIV): No Hx Hepatitis C: No Hx Depression: No Hx Suicide Attempt: No Hx Bipolar Disorder: No Hx Schizophrenia: No - Patient Surgical History Past Surgical History: No Hx Neurologic Surgery: No Hx Cataract Extraction: No Hx Cardiac Surgery: No Hx Lung Surgery: No Hx Breast Surgery: No Hx Breast Biopsy: No Hx Abdominal Surgery: No Hx Appendectomy: No Hx Cholecystectomy: No Hx Genitourinary Surgery: No Hx Section: No Hx Orthopedic Surgery: No Anesthesia Reaction: No - PPD History Previous Implant?: Yes Documented Results: Negative w/o proof Date: 11/19/18 Results: QUANTIFERON PPD to be Administered?: No - Smoking Cessation Smoking history: Current every day smoker Have you smoked in the past 12 months: No Aproximately how many cigarettes per day: 30 Hx Chewing Tobacco Use: No Initiated information on smoking cessation: Yes 'Breaking Loose' booklet given: 05/12/19 - Substance & Tx. History Hx Alcohol Use: Yes Hx Substance Use Treatment: No - Substances abused Alcohol Substance route: Oral Frequency: Daily Amount used: 2 bottles of isiah/ 2 cans of beer. Age of first use: 11 Date of last use: 05/06/19 Admission Physical Exam [facility] - Vital Signs Vital Signs: Vital Signs - 24 hr 05/12/19 05/12/19 18:33 19:31 Temperature 97.6 F 97.6 F Pulse Rate 111 H 111 H Respiratory 16 16 Rate Blood Pressure 126/81 126/81 - Physical General Appearance: Yes: No Apparent Distress HEENTM: Yes: EOMI, Hearing grossly Normal, Normocephalic, Normal Voice, KIM, Pharynx Normal, Tm's normal Respiratory: Yes: Chest Non-Tender, Lungs Clear, Normal Breath Sounds, No Respiratory Distress Neck: Yes: No masses,lesions,Nodules, Supple, Trachea in good position Breast: Yes: Within Normal Limits Cardiology: Yes: Regular Rhythm, Regular Rate, S1, S2 Abdominal: Yes: Normal Bowel Sounds, Non Tender, Soft Genitourinary: Yes: Within Normal Limits Back: Yes: Normal Inspection Musculoskeletal: Yes: Back pain Extremities: Yes: Normal Capillary Refill, Normal Inspection, Normal Range of Motion, Non-Tender Neurological: Yes: Alert, Normal Mood/Affect, Normal Response Integumentary: Yes: Dry, Warm Lymphatic: Yes: Within Normal Limits Cleared for Admission [facility] - Detox or Rehab Claeared for Rehab Admission: Yes Breathalyzer - Breathalyzer Breathalyzer: 0 Urine Drug Screen - Test Device Lot number: [id number] Expiration date: 11/24/20 - Control Is test valid?: Yes - Results Drug screen NEGATIVE: No Urine drug screen results: THC-Marijuana, BZO-Benzodiazepines Inpatient Rehab Admission - Rehab Decision to Admit Inpatient rehab admission?: Yes - Initial Determination Are CD services needed?: Yes Free of communicable disease: Yes Not in need of hospitalization: Yes - Rehab Admission Criteria Previous failed treatment: Yes Poor recovery environment: Yes Comorbidities: Yes Lacks judgement: Yes Patient is meeting Inpatient Rehab admission criteria:: Yes
[2019-05-12] MEDS ORDERED: MAG HYDROX/AL HYDROX/SIMETH 30 ML UNIT-DOSE CUP PO PRN (20:22)
[2019-05-12] MEDS ORDERED: MENTHOL/PHENOL 1 EACH UD MM PRN (20:22)
[2019-05-12] MEDS ORDERED: MAGNESIUM HYDROX 2400MG/30ML ORAL SUSPENSION 30 ML CUP PO PRN (20:22)
[2019-05-12] MEDS ORDERED: P-EPHED 60MG/TRIPROLIDI 2.5MG TABLET PO PRN (20:22)
[2019-05-12] MEDS ORDERED: guaiFENesin 200 MG/10 ML 10 ML UNIT-DOSE CUPS PO PRN (20:22)
[2019-05-12] MEDS ORDERED: ACETAMINOPHEN 325 MG TABLET (FP) PO PRN (20:22)
[2019-05-12] MEDS ORDERED: MAGNESIUM CITRATE 300 ML BOTTLE PO PRN (20:22)
[2019-05-12] MEDS ORDERED: LOPERAMIDE HCL 2 MG CAPSULE PO PRN (20:22)
[2019-05-12] MEDS: MELATONIN 5 MG TABLETS PO PRN (21:42)
[2019-05-12] MEDS: THIAMINE HCL 100 MG TABLET (FP) PO SCH (21:42)
[2019-05-12] MEDS: hydrOXYzine PAMOATE 25 MG CAPSULE (FP) PO PRN (21:42)
[2019-05-12] MEDS: NICOTINE POLACRILEX 2 MG GUM BUC PRN (21:42)
[2019-05-13] MEDS: PRENATAL VITAMINS W/ FOLIC ACID TABLET (FP) PO SCH (10:48)
[2019-05-13] MEDS: NICOTINE 21 MG/24 HOURS TOPICAL PATCH TD SCH (10:48)
[2019-05-13] MEDS: NICOTINE POLACRILEX 2 MG GUM BUC PRN (10:50)
[2019-05-13 11:59] LABS: HEMATOCRIT 31.7 % (35.4-49); HEMOGLOBIN 10.5 GM/dL (11.7-16.9); MCH 32.3 pg (25.7-33.7); MCHC 33.1 g/dl (32.0-35.9); MEAN CELL VOLUME 97.5 fl (80-96); MEAN PLT VOLUME 8.9 fl (7.5-11.1); PLATELET COUNT 216 K/MM3 (134-434); RBC 3.26 M/mm3 (4.00-5.60); RDW 13.6 % (11.9-15.9); WHITE BLOOD COUNT 3.3 K/mm3 (4.0-10.0)
[2019-05-13 12:01] LABS: PH,URINE 5.5 (5.0-8.0); URINE APPEARANCE CLEAR; URINE BILIRUBIN 1+ (NEGATIVE); URINE COLOR DK YELLOW; URINE GLUCOSE (UA) NEGATIVE (NEGATIVE); URINE KETONE TRACE (NEGATIVE); URINE LEUK ESTERASE NEGATIVE (NEGATIVE); URINE NITRITE NEGATIVE (NEGATIVE); URINE PROTEIN NEGATIVE (NEGATIVE)
[2019-05-13 12:33] LABS: ALBUMIN 3.6 g/dl (3.4-5.0); BLOOD UREA NITROGEN 9.6 mg/dL (7-18); CALCIUM 8.6 mg/dL (8.5-10.1); CREATININE 0.6 mg/dL (0.55-1.3); POTASSIUM 3.7 mmol/L (3.5-5.1); TOT PROT 7.3 g/dl (6.4-8.2)
--- NOTE | 2019-05-13 15:27 | PN ---
[facility] Progress Note Note: PATIENT ADMITTED TO REHAB ON 05/12/2019 FOR ALCOHOL DEPENDENCE. HAS HX OF LOW BACK PAIN DUE TO PREVIOUS BACK INJURY. ROS: +LBP, LEVEL [id number] Vital Signs Period Temp Pulse Resp BP Sys/Chin Pulse Ox Last 24 Hr 97.3 F-97.6 F 79-111 16- 113-126/70-81 Laboratory Tests 05/13/19 05/13/19 05/13/19 08:30 08:30 08:30 WBC 3.3 L RBC 3.26 L Hgb 10.5 L Hct 31.7 L MCV 97.5 H MCH 32.3 MCHC 33.1 RDW 13.6 Plt Count 216 MPV 8.9 Sodium 139 Potassium 3.7 Chloride 107 Carbon Dioxide 27 Anion Gap 5 L BUN 9.6 Creatinine 0.6 Est GFR (CKD-EPI)AfAm 149.92 Est GFR (CKD-EPI)NonAf 129.35 Random Glucose 88 Calcium 8.6 Total Bilirubin 1.0 AST 334 H ALT 287 H Alkaline Phosphatase 258 H Total Protein 7.3 Albumin 3.6 Urine Color Urine Appearance Urine pH Ur Specific [place] Urine Protein Urine Glucose (UA) Urine Ketones Urine Blood Urine Nitrite Urine Bilirubin Urine Urobilinogen Ur Leukocyte Esterase RPR Titer Nonreactive 05/13/19 09:00 WBC RBC Hgb Hct MCV MCH MCHC RDW Plt Count MPV Sodium Potassium Chloride Carbon Dioxide Anion Gap BUN Creatinine Est GFR (CKD-EPI)AfAm Est GFR (CKD-EPI)NonAf Random Glucose Calcium Total Bilirubin AST ALT Alkaline Phosphatase Total Protein Albumin Urine Color Dk yellow Urine Appearance Clear Urine pH 5.5 Ur Specific [place] 1.026 Urine Protein Negative Urine Glucose (UA) Negative Urine Ketones Trace H Urine Blood Negative Urine Nitrite Negative Urine Bilirubin 1+ H Urine Urobilinogen 1.0 Ur Leukocyte Esterase Negative RPR Titer PE ALERT AND ORIENTED X 3 SKIN WARM AND DRY +PERRLA, SCLERA ICTHERIC GI NT ND EXT MILD TREMORS, FULL ROM AMB AD FRANCK A/P: CHRONIC BACK PAIN ELEVATED LEFTS ALCOHOL DEPENDENCE ADD FLEXERIL 5MG TID FOR PAIN (PREVIOUSLY TX WITH PERCOCET BY OUTSIDE PROVIDER) ENCOURAGE ORAL FLUIDS REPEAT CMP 05/17/19
[2019-05-13] MEDS: CYCLOBENZAPRINE HCL 5 MG TABLET PO SCH ×2 (15:59→21:04)
[2019-05-13] MEDS: THIAMINE HCL 100 MG TABLET (FP) PO SCH (21:04)
[2019-05-13] MEDS: MELATONIN 5 MG TABLETS PO PRN (21:04)
[2019-05-14] MEDS: CYCLOBENZAPRINE HCL 5 MG TABLET PO SCH ×3 (05:56→21:19)
[2019-05-14] MEDS: PRENATAL VITAMINS W/ FOLIC ACID TABLET (FP) PO SCH (10:30)
[2019-05-14] MEDS: NICOTINE 21 MG/24 HOURS TOPICAL PATCH TD SCH (10:30)
[2019-05-14] MEDS: NICOTINE POLACRILEX 2 MG GUM BUC PRN (19:00)
[2019-05-14] MEDS: hydrOXYzine PAMOATE 25 MG CAPSULE (FP) PO PRN (21:19)
[2019-05-14] MEDS: MELATONIN 5 MG TABLETS PO PRN (21:19)
[2019-05-14] MEDS: THIAMINE HCL 100 MG TABLET (FP) PO SCH (21:19)
[2019-05-15] MEDS: CYCLOBENZAPRINE HCL 5 MG TABLET PO SCH ×3 (06:04→21:43)
[2019-05-15] MEDS: IBUPROFEN 400 MG TABLET (FP) PO PRN (09:49)
[2019-05-15] MEDS: PRENATAL VITAMINS W/ FOLIC ACID TABLET (FP) PO SCH (09:49)
[2019-05-15] MEDS: NICOTINE POLACRILEX 2 MG GUM BUC PRN ×2 (09:51→14:19)
[2019-05-15] MEDS: hydrOXYzine PAMOATE 25 MG CAPSULE (FP) PO PRN ×2 (14:18→21:44)
[2019-05-15] MEDS: NICOTINE 21 MG/24 HOURS TOPICAL PATCH TD SCH (14:43)
[2019-05-15] MEDS: MELATONIN 5 MG TABLETS PO PRN (21:43)
[2019-05-15] MEDS: THIAMINE HCL 100 MG TABLET (FP) PO SCH (21:43)
[2019-05-16] MEDS: CYCLOBENZAPRINE HCL 5 MG TABLET PO SCH ×3 (06:00→21:36)
[2019-05-16] MEDS: hydrOXYzine PAMOATE 25 MG CAPSULE (FP) PO PRN (07:08)
--- NOTE | 2019-05-16 10:01 | PN ---
[facility] Progress Note Note: PATIENT DID NOT ATTEND GROUP THIS MORNING STATING " I AM TIRED AND WANT TO SLEEP ". PATIENT ENCOURAGED TO ATTEND GROUP WITH NO EFFECT. COUNSELOR JENNIFER BOOTHE NOTIFIED OF SITUATION. Vital Signs Temperature 97.4 F L 05/16/19 06:55 Pulse Rate 86 05/16/19 06:55 Respiratory Rate 18 05/16/19 06:55 Blood Pressure 100/70 05/16/19 06:55 O2 Sat by Pulse Oximetry (%)
[2019-05-16] MEDS: NICOTINE 21 MG/24 HOURS TOPICAL PATCH TD SCH (10:20)
[2019-05-16] MEDS: PRENATAL VITAMINS W/ FOLIC ACID TABLET (FP) PO SCH (10:20)
[2019-05-16] MEDS: NICOTINE POLACRILEX 2 MG GUM BUC PRN (10:22)
[2019-05-16] MEDS: THIAMINE HCL 100 MG TABLET (FP) PO SCH (21:35)
[2019-05-16] MEDS: MELATONIN 5 MG TABLETS PO PRN (21:35)
[2019-05-17] MEDS: CYCLOBENZAPRINE HCL 5 MG TABLET PO SCH ×3 (06:11→21:05)
[2019-05-17] MEDS: PRENATAL VITAMINS W/ FOLIC ACID TABLET (FP) PO SCH (10:16)
[2019-05-17] MEDS: hydrOXYzine PAMOATE 25 MG CAPSULE (FP) PO PRN (10:16)
[2019-05-17] MEDS: NICOTINE 21 MG/24 HOURS TOPICAL PATCH TD SCH (10:16)
[2019-05-17] MEDS: NICOTINE POLACRILEX 2 MG GUM BUC PRN (10:16)
[2019-05-17 15:49] LABS: ALBUMIN 3.6 g/dl (3.4-5.0); BILIRUBIN,TOTAL 0.4 mg/dL (0.2-1); BLOOD UREA NITROGEN 10.4 mg/dL (7-18); CREATININE 0.7 mg/dL (0.55-1.3); POTASSIUM 3.7 mmol/L (3.5-5.1)
[2019-05-17] MEDS: MELATONIN 5 MG TABLETS PO PRN (21:05)
[2019-05-17] MEDS: THIAMINE HCL 100 MG TABLET (FP) PO SCH (21:05)
[2019-05-18] MEDS: hydrOXYzine PAMOATE 25 MG CAPSULE (FP) PO PRN (04:24)
[2019-05-18] MEDS: CYCLOBENZAPRINE HCL 5 MG TABLET PO SCH ×3 (06:13→22:26)
[2019-05-18] MEDS: PRENATAL VITAMINS W/ FOLIC ACID TABLET (FP) PO SCH (10:34)
[2019-05-18] MEDS: NICOTINE 21 MG/24 HOURS TOPICAL PATCH TD SCH (10:35)
[2019-05-18] MEDS: NICOTINE POLACRILEX 2 MG GUM BUC PRN ×2 (10:35→19:23)
[2019-05-18] MEDS: THIAMINE HCL 100 MG TABLET (FP) PO SCH (22:26)
[2019-05-18] MEDS: MELATONIN 5 MG TABLETS PO PRN (22:26)
[2019-05-19] MEDS: CYCLOBENZAPRINE HCL 5 MG TABLET PO SCH (05:58)
--- NOTE | 2019-05-19 09:16 | PN ---
[facility] Progress Note Note: patient c/o that he does not like the side effects of Flexeril. Changed to PRN.
[2019-05-19] MEDS: NICOTINE 21 MG/24 HOURS TOPICAL PATCH TD SCH (10:33)
[2019-05-19] MEDS: PRENATAL VITAMINS W/ FOLIC ACID TABLET (FP) PO SCH (10:33)
[2019-05-19] MEDS: NICOTINE POLACRILEX 2 MG GUM BUC PRN (10:34)
[2019-05-19] MEDS: MELATONIN 5 MG TABLETS PO PRN (21:58)
[2019-05-19] MEDS: THIAMINE HCL 100 MG TABLET (FP) PO SCH (21:58)
[2019-05-20] MEDS ORDERED: COLLOIDAL OATMEAL 1 BAR EACH TP PRN (09:28)
[2019-05-20] MEDS: PRENATAL VITAMINS W/ FOLIC ACID TABLET (FP) PO SCH (10:29)
[2019-05-20] MEDS: CYCLOBENZAPRINE HCL 10 MG TABLET (FP) PO PRN (10:29)
[2019-05-20] MEDS: NICOTINE 21 MG/24 HOURS TOPICAL PATCH TD SCH (10:29)
[2019-05-20] MEDS: NICOTINE POLACRILEX 2 MG GUM BUC PRN ×3 (10:30→21:10)
[2019-05-20] MEDS: MELATONIN 5 MG TABLETS PO PRN (21:09)
[2019-05-20] MEDS: THIAMINE HCL 100 MG TABLET (FP) PO SCH (21:09)
[2019-05-21] MEDS: PRENATAL VITAMINS W/ FOLIC ACID TABLET (FP) PO SCH (11:07)
[2019-05-21] MEDS: NICOTINE 21 MG/24 HOURS TOPICAL PATCH TD SCH (11:07)
[2019-05-21] MEDS: THIAMINE HCL 100 MG TABLET (FP) PO SCH (21:34)
[2019-05-21] MEDS: MELATONIN 5 MG TABLETS PO PRN (21:34)
[2019-05-22] MEDS: NICOTINE 21 MG/24 HOURS TOPICAL PATCH TD SCH (09:48)
[2019-05-22] MEDS: PRENATAL VITAMINS W/ FOLIC ACID TABLET (FP) PO SCH (09:48)
[2019-05-22] MEDS: THIAMINE HCL 100 MG TABLET (FP) PO SCH (21:10)
[2019-05-22] MEDS: MELATONIN 5 MG TABLETS PO PRN (21:10)
[2019-05-23] MEDS: PRENATAL VITAMINS W/ FOLIC ACID TABLET (FP) PO SCH (10:15)
[2019-05-23] MEDS: NICOTINE 21 MG/24 HOURS TOPICAL PATCH TD SCH (10:15)
[2019-05-23] MEDS: NICOTINE POLACRILEX 2 MG GUM BUC PRN (10:16)
[2019-05-23] MEDS: THIAMINE HCL 100 MG TABLET (FP) PO SCH (21:39)
[2019-05-23] MEDS: MELATONIN 5 MG TABLETS PO PRN (21:39)
[2019-05-23] MEDS: IBUPROFEN 400 MG TABLET (FP) PO PRN (23:11)
[2019-05-24] MEDS: IBUPROFEN 400 MG TABLET (FP) PO PRN ×3 (10:24→22:55)
[2019-05-24] MEDS: PRENATAL VITAMINS W/ FOLIC ACID TABLET (FP) PO SCH (10:24)
[2019-05-24] MEDS: NICOTINE 21 MG/24 HOURS TOPICAL PATCH TD SCH (10:25)
[2019-05-24] MEDS: NICOTINE POLACRILEX 2 MG GUM BUC PRN ×2 (10:25→18:38)
[2019-05-24] MEDS ORDERED: ACETAMINOPHEN 325 MG TABLET (FP) PO ONE (18:00)
[2019-05-24] MEDS: MELATONIN 5 MG TABLETS PO PRN (21:28)
[2019-05-24] MEDS: THIAMINE HCL 100 MG TABLET (FP) PO SCH (21:28)
[2019-05-24] MEDS: CYCLOBENZAPRINE HCL 10 MG TABLET (FP) PO PRN (21:29)
[2019-05-25] MEDS: IBUPROFEN 400 MG TABLET (FP) PO PRN ×4 (04:34→22:42)
[2019-05-25] MEDS ORDERED: BENZOCAINE 20 % GEL TUBE MM PRN (08:58)
[2019-05-25] MEDS: NICOTINE 21 MG/24 HOURS TOPICAL PATCH TD SCH (10:03)
[2019-05-25] MEDS: PRENATAL VITAMINS W/ FOLIC ACID TABLET (FP) PO SCH (10:03)
[2019-05-25] MEDS: NICOTINE POLACRILEX 2 MG GUM BUC PRN (10:05)
[2019-05-25] MEDS: ACETAMINOPHEN 325 MG TABLET (FP) PO PRN (17:38)
[2019-05-25] MEDS: THIAMINE HCL 100 MG TABLET (FP) PO SCH (21:08)
[2019-05-25] MEDS: MELATONIN 5 MG TABLETS PO PRN (21:08)
[2019-05-26] MEDS: IBUPROFEN 600 MG TABLET (FP) PO PRN ×2 (03:28→14:45)
[2019-05-26] MEDS: NICOTINE 21 MG/24 HOURS TOPICAL PATCH TD SCH (10:08)
[2019-05-26] MEDS: PRENATAL VITAMINS W/ FOLIC ACID TABLET (FP) PO SCH (10:08)
[2019-05-26] MEDS: ACETAMINOPHEN 325 MG TABLET (FP) PO PRN ×2 (10:09→21:40)
[2019-05-26] MEDS: MELATONIN 5 MG TABLETS PO PRN (21:40)
[2019-05-26] MEDS: THIAMINE HCL 100 MG TABLET (FP) PO SCH (21:40)
[2019-05-27] MEDS: IBUPROFEN 400 MG TABLET (FP) PO PRN (00:56)
[2019-05-27] MEDS: PRENATAL VITAMINS W/ FOLIC ACID TABLET (FP) PO SCH (09:50)
[2019-05-27] MEDS: NICOTINE 21 MG/24 HOURS TOPICAL PATCH TD SCH (09:50)
[2019-05-27] MEDS: IBUPROFEN 600 MG TABLET (FP) PO PRN ×3 (09:50→21:10)
--- NOTE | 2019-05-27 13:33 | PN ---
[facility] Progress Note Note: Laboratory Tests 05/13/19 05/13/19 05/13/19 08:30 08:30 08:30 WBC 3.3 L RBC 3.26 L Hgb 10.5 L Hct 31.7 L MCV 97.5 H MCH 32.3 MCHC 33.1 RDW 13.6 Plt Count 216 MPV 8.9 Sodium 139 Potassium 3.7 Chloride 107 Carbon Dioxide 27 Anion Gap 5 L BUN 9.6 Creatinine 0.6 Est GFR (CKD-EPI)AfAm 149.92 Est GFR (CKD-EPI)NonAf 129.35 POC Glucometer Random Glucose 88 Calcium 8.6 Total Bilirubin 1.0 AST 334 H ALT 287 H Alkaline Phosphatase 258 H Total Protein 7.3 Albumin 3.6 Urine Color Urine Appearance Urine pH Ur Specific [place] Urine Protein Urine Glucose (UA) Urine Ketones Urine Blood Urine Nitrite Urine Bilirubin Urine Urobilinogen Ur Leukocyte Esterase RPR Titer Nonreactive 05/13/19 05/17/19 05/26/19 09:00 08:30 06:18 WBC RBC Hgb Hct MCV MCH MCHC RDW Plt Count MPV Sodium 139 Potassium 3.7 Chloride 104 Carbon Dioxide 29 Anion Gap 5 L BUN 10.4 Creatinine 0.7 Est GFR (CKD-EPI)AfAm 140.71 Est GFR (CKD-EPI)NonAf 121.41 POC Glucometer 105 Random Glucose 157 H Calcium 9.0 Total Bilirubin 0.4 AST 108 H ALT 184 H Alkaline Phosphatase 191 H Total Protein 7.0 Albumin 3.6 Urine Color Dk yellow Urine Appearance Clear Urine pH 5.5 Ur Specific [place] 1.026 Urine Protein Negative Urine Glucose (UA) Negative Urine Ketones Trace H Urine Blood Negative Urine Nitrite Negative Urine Bilirubin 1+ H Urine Urobilinogen 1.0 Ur Leukocyte Esterase Negative RPR Titer 05/27/19 06:01 WBC RBC Hgb Hct MCV MCH MCHC RDW Plt Count MPV Sodium Potassium Chloride Carbon Dioxide Anion Gap BUN Creatinine Est GFR (CKD-EPI)AfAm Est GFR (CKD-EPI)NonAf POC Glucometer 102 Random Glucose Calcium Total Bilirubin AST ALT Alkaline Phosphatase Total Protein Albumin Urine Color Urine Appearance Urine pH Ur Specific [place] Urine Protein Urine Glucose (UA) Urine Ketones Urine Blood Urine Nitrite Urine Bilirubin Urine Urobilinogen Ur Leukocyte Esterase RPR Titer Vital Signs Temperature 97.7 F 05/27/19 07:11 Pulse Rate 89 05/27/19 07:11 Respiratory Rate 18 05/27/19 07:11 Blood Pressure 107/71 05/27/19 07:11 O2 Sat by Pulse Oximetry (%) Labs reviewed, LFTs elevated but improving. Will repeat CMP in am. Oral fluids encouraged.
[2019-05-27] MEDS: CYCLOBENZAPRINE HCL 10 MG TABLET (FP) PO PRN (15:21)
[2019-05-27] MEDS: MELATONIN 5 MG TABLETS PO PRN (21:09)
[2019-05-27] MEDS: THIAMINE HCL 100 MG TABLET (FP) PO SCH (21:09)
[2019-05-28] MEDS: IBUPROFEN 600 MG TABLET (FP) PO PRN ×3 (06:13→20:31)
[2019-05-28] MEDS: PRENATAL VITAMINS W/ FOLIC ACID TABLET (FP) PO SCH (10:20)
[2019-05-28] MEDS: NICOTINE 21 MG/24 HOURS TOPICAL PATCH TD SCH (10:23)
[2019-05-28 11:09] LABS: ALBUMIN 3.7 g/dl (3.4-5.0); BILIRUBIN,TOTAL 0.5 mg/dL (0.2-1); BLOOD UREA NITROGEN 9.6 mg/dL (7-18); CALCIUM 9.1 mg/dL (8.5-10.1); CREATININE 0.7 mg/dL (0.55-1.3); POTASSIUM 3.8 mmol/L (3.5-5.1); TOT PROT 7.4 g/dl (6.4-8.2)
[2019-05-28] MEDS: THIAMINE HCL 100 MG TABLET (FP) PO SCH (21:50)
[2019-05-28] MEDS: MELATONIN 5 MG TABLETS PO PRN (21:50)
[2019-05-29] MEDS: IBUPROFEN 600 MG TABLET (FP) PO PRN ×4 (06:13→21:07)
[2019-05-29] MEDS: PRENATAL VITAMINS W/ FOLIC ACID TABLET (FP) PO SCH (10:29)
[2019-05-29] MEDS: NICOTINE 21 MG/24 HOURS TOPICAL PATCH TD SCH (10:30)
[2019-05-29] MEDS: MELATONIN 5 MG TABLETS PO PRN (21:07)
[2019-05-29] MEDS: THIAMINE HCL 100 MG TABLET (FP) PO SCH (21:07)
[2019-05-30] MEDS: PRENATAL VITAMINS W/ FOLIC ACID TABLET (FP) PO SCH (09:47)
[2019-05-30] MEDS: NICOTINE 21 MG/24 HOURS TOPICAL PATCH TD SCH (09:47)
[2019-05-30] MEDS: IBUPROFEN 600 MG TABLET (FP) PO PRN ×2 (09:48→21:42)
[2019-05-30] MEDS: MELATONIN 5 MG TABLETS PO PRN (21:42)
[2019-05-30] MEDS: THIAMINE HCL 100 MG TABLET (FP) PO SCH (21:42)
[2019-05-31] MEDS: IBUPROFEN 600 MG TABLET (FP) PO PRN (06:09)
[2019-05-31] MEDS: NICOTINE 21 MG/24 HOURS TOPICAL PATCH TD SCH (10:18)
[2019-05-31] MEDS: PRENATAL VITAMINS W/ FOLIC ACID TABLET (FP) PO SCH (10:18)
[2019-05-31] MEDS: MELATONIN 5 MG TABLETS PO PRN (21:03)
[2019-05-31] MEDS: THIAMINE HCL 100 MG TABLET (FP) PO SCH (21:03)
[2019-06-01] MEDS: NICOTINE 21 MG/24 HOURS TOPICAL PATCH TD SCH (10:55)
[2019-06-01] MEDS: PRENATAL VITAMINS W/ FOLIC ACID TABLET (FP) PO SCH (10:55)
[2019-06-01] MEDS: MELATONIN 5 MG TABLETS PO PRN (21:28)
[2019-06-01] MEDS: THIAMINE HCL 100 MG TABLET (FP) PO SCH (21:28)
[2019-06-02] MEDS: PRENATAL VITAMINS W/ FOLIC ACID TABLET (FP) PO SCH (10:48)
[2019-06-02] MEDS: NICOTINE 21 MG/24 HOURS TOPICAL PATCH TD SCH (10:49)
[2019-06-02] MEDS ORDERED: PT OWN MED DRAWER 7, Y5N ONE (10:52)
[2019-06-02] MEDS: THIAMINE HCL 100 MG TABLET (FP) PO SCH (21:37)
[2019-06-02] MEDS: MELATONIN 5 MG TABLETS PO PRN (21:38)
[2019-06-03 07:15] VITALS: BP 101/67; PULSE 103; TEMP 98.1
--- NOTE | 2019-06-03 10:16 | DS ---
[facility] Rehab Discharge Summary - [facility] Rehab Discharge Summary Admission Date: 05/12/19 Discharge Date: 06/03/19 - History Present History: Alcohol dependence - Discharge Physical Exam Vital Signs: Vital Signs Temperature 98.1 F 06/03/19 07:15 Pulse Rate 103 H 06/03/19 07:15 Respiratory Rate 20 06/03/19 07:15 Blood Pressure 101/67 06/03/19 07:15 O2 Sat by Pulse Oximetry (%) Laboratory Tests 05/13/19 05/13/19 05/13/19 08:30 08:30 08:30 WBC 3.3 L RBC 3.26 L Hgb 10.5 L Hct 31.7 L MCV 97.5 H MCH 32.3 MCHC 33.1 RDW 13.6 Plt Count 216 MPV 8.9 Sodium 139 Potassium 3.7 Chloride 107 Carbon Dioxide 27 Anion Gap 5 L BUN 9.6 Creatinine 0.6 Est GFR (CKD-EPI)AfAm 149.92 Est GFR (CKD-EPI)NonAf 129.35 POC Glucometer Random Glucose 88 Calcium 8.6 Total Bilirubin 1.0 AST 334 H ALT 287 H Alkaline Phosphatase 258 H Total Protein 7.3 Albumin 3.6 Urine Color Urine Appearance Urine pH Ur Specific [place] Urine Protein Urine Glucose (UA) Urine Ketones Urine Blood Urine Nitrite Urine Bilirubin Urine Urobilinogen Ur Leukocyte Esterase RPR Titer Nonreactive 05/13/19 05/17/19 05/26/19 09:00 08:30 06:18 WBC RBC Hgb Hct MCV MCH MCHC RDW Plt Count MPV Sodium 139 Potassium 3.7 Chloride 104 Carbon Dioxide 29 Anion Gap 5 L BUN 10.4 Creatinine 0.7 Est GFR (CKD-EPI)AfAm 140.71 Est GFR (CKD-EPI)NonAf 121.41 POC Glucometer 105 Random Glucose 157 H Calcium 9.0 Total Bilirubin 0.4 AST 108 H ALT 184 H Alkaline Phosphatase 191 H Total Protein 7.0 Albumin 3.6 Urine Color Dk yellow Urine Appearance Clear Urine pH 5.5 Ur Specific [place] 1.026 Urine Protein Negative Urine Glucose (UA) Negative Urine Ketones Trace H Urine Blood Negative Urine Nitrite Negative Urine Bilirubin 1+ H Urine Urobilinogen 1.0 Ur Leukocyte Esterase Negative RPR Titer 05/27/19 05/28/19 06:01 07:30 WBC RBC Hgb Hct MCV MCH MCHC RDW Plt Count MPV Sodium 138 Potassium 3.8 Chloride 103 Carbon Dioxide 26 Anion Gap 8 BUN 9.6 Creatinine 0.7 Est GFR (CKD-EPI)AfAm 140.71 Est GFR (CKD-EPI)NonAf 121.41 POC Glucometer 102 Random Glucose 152 H Calcium 9.1 Total Bilirubin 0.5 AST 39 H ALT 80 H Alkaline Phosphatase 125 H Total Protein 7.4 Albumin 3.7 Urine Color Urine Appearance Urine pH Ur Specific [place] Urine Protein Urine Glucose (UA) Urine Ketones Urine Blood Urine Nitrite Urine Bilirubin Urine Urobilinogen Ur Leukocyte Esterase RPR Titer Ambulatory Orders Quetiapine Fumarate [Seroquel] 100 mg PO HS #30 tab 08/14/16 Multivitamins [Multivit ([facility] Formulary)] 1 tablet PO DAILY 05/12/19 Oxycodone HCl/Acetaminophen [Percocet 10-325 mg Tablet] 1 tablet PO BID PRN Thiamine HCl [Vitamin B-1] 100 mg PO DAILY #30 tablet 06/02/19 ROS: DENIES ETOH CRAVINGS, SHAKES, SWEATING, CP AND SOB PE ALERT AND ORIENTED X 3 SKIN WARM AND DRY CAR S1S2 RESP CTA BL EXT FULL ROM, AMB AD FRANCK NO TREMORS, DENIES SI/HI A/P ETOH DEPENDENCE PATIENT MEDICALLY STABLE FOR DISCHARGE - Treatment Discharge Condition: Discharge condition good Hospital Course: PATIENT ADMITTED FOR ALCOHOL DEPENDENCE. DURING HOSPITAL COURSE, HE ATTENDED GROUP MEETINGS AND 1:1 SESSIONS WITH COUNSELOR. AFTERCARE ARRANGED FOR PATIENT TO RETURN TO [facility] TODAY, 06/03/2019. PATIENT IS MOTIVATED TO MAINTAIN SOBRIETY, PROVIDER RECOMMENDED HE ATTEND AA MEETINGS TO PREVENT REOCCURRENCE AND FOLLOW UP WITH PCP RECOMMENDED. PATIENT IS MEDICALLY STABLE AND DENIES SI/HI AT THIS TIME. HE LEFT UNIT WITH TECH IN STABLE CONDITIONS. - Medication Discharge Medications: Ambulatory Orders Quetiapine Fumarate [Seroquel] 100 mg PO HS #30 tab 08/14/16 Multivitamins [Multivit ([facility] Formulary)] 1 tablet PO DAILY 05/12/19 Oxycodone HCl/Acetaminophen [Percocet 10-325 mg Tablet] 1 tablet PO BID PRN Thiamine HCl [Vitamin B-1] 100 mg PO DAILY #30 tablet 06/02/19 - Discharge Instructions Diet, activity, other medical instructions: Diet: Activity: Other medical instructions: - Follow-up Referral Minutes to complete discharge: 35 - AMA Did Patient Leave Against Medical Advice: No
== END 2019-06-03 09:28 | disposition home or self-care (01) | DRG 772 ==
LOC: YASAS 14:50 → Y3W 20:29
PROVIDERS: ADMIT Neuromusculoskeletal Medicine & OMM; ATTEND Neuromusculoskeletal Medicine & OMM
PROC: HZ42ZZZ Group Counseling for Substance Abuse Treatment, Cognitive-Behavioral (ICD-10-PCS; principal; 2019-05-12)
DX: F10.20 Alcohol dependence, uncomplicated (principal); F17.210 Nicotine dependence, cigarettes, uncomplicated; M54.5 Low back pain; G89.29 Other chronic pain; R94.5 Abnormal results of liver function studies; G40.509 Epileptic seizures related to external causes, not intractable, without status epilepticus; Z87.828 Personal history of other (healed) physical injury and trauma
CPT/HCPCS: 36415; 80053; 81003; 82962; 85027; 86593

== ENCOUNTER 2019-06-29 03:44 | Emergency (ER) | payer OTHER ==
--- NOTE | 2019-06-29 03:54 | PDOC ---
Attending Attestation - Resident Resident Name: Modesto Santana - ED Attending Attestation I have performed the following: I have examined & evaluated the patient, The case was reviewed & discussed with the resident, I agree w/resident's findings & plan - HPI HPI: 06/29/19 04:02 see resident hpi - Physicial Exam PE: 06/29/19 04:03 GENERAL: Awake, in no acute distress LUNGS:. Normal work of breathing. NEUROLOGICAL: Alert, O x 4, moving all aextremities, steady gait - Medical Decision Making 06/29/19 04:05 38-year-old male refused to give urine at detox facility, sent here for further evaluation Patient again refusing to supply urine sample in the emergency department, he was noncompliant with history taking and exam Multiple attempts were made by myself and the emergency department resident without success Patient states he does not want to give urine and would rather leave Patient ambulated on his own out of the emergency department with steady gait, oriented x4, communicating properly and able to make needs known.
--- NOTE | 2019-06-29 03:58 | PDOC ---
History of Present Illness - General Stated Complaint: E.T.O.H. Time Seen by Provider: 06/29/19 03:51 - History of Present Illness Initial Comments: 06/29/19 04:01 38 yo M with h/o Etoh abuse, who p/w refusal to provide urine. Patient arrives from [facility] facility with complaint by staff that he refused to provide urine. EMS reports patient refused to provide urine to [facility] during attempt to detox from alcohol. Patient currently non cooperative with history. PMHx: as noted above ROS: as noted Allergies: NKDA Past History - Past Medical History Allergies/Adverse Reactions: Allergies Allergy/AdvReac Type Severity Reaction Status Date / Time No Known Allergies Allergy Verified 06/29/19 03:59 Home Medications: Ambulatory Orders Quetiapine Fumarate [Seroquel] 100 mg PO HS #30 tab 08/14/16 Multivitamins [Multivit ([facility] Formulary)] 1 tablet PO DAILY 05/12/19 Oxycodone HCl/Acetaminophen [Percocet 10-325 mg Tablet] 1 tablet PO BID PRN 05/12/19 Thiamine HCl [Vitamin B-1] 100 mg PO DAILY #30 tablet 06/02/19 Anemia: No Asthma: Yes Cancer: No Cardiac Disorders: No CVA: No COPD: No CHF: No Dementia: No Diabetes: No GI Disorders: No Disorders: No HTN: No Hypercholesterolemia: No Kidney Stones: No Liver Disease: No Seizures: Yes (etoh related seizure last 1.5 yrs ago) Thyroid Disease: No - Surgical History Abdominal Surgery: No Appendectomy: No Cardiac Surgery: No Cholecystectomy: No Lung Surgery: No Neurologic Surgery: No Orthopedic Surgery: No - Reproductive History Testicular Surgery: No - Psycho Social/Smoking Cessation Hx Smoking History: Current every day smoker Have you smoked in the past 12 months: No Number of Cigarettes Smoked Daily: 30 'Breaking Loose' booklet given: 05/12/19 Hx Alcohol Use: Yes Drug/Substance Use Hx: No Substance Use Type: Alcohol Hx Substance Use Treatment: No Review of Systems - Review of Systems Comments:: 06/29/19 04:07 Patient refused to provide 13 point ROS inspection *Physical Exam - Physical Exam 06/29/19 04:07 GENERAL: Awake, alert, in no acute distress, unable to perform HEAD: No signs of trauma, normocephalic, atraumatic EYES: PERRLA, EOMI, sclera anicteric, conjunctiva clear ENT: Hearing grossly normal, nares patent NECK: Normal ROM, supple, no lymphadenopathy, JVD, or masses LUNGS: No distress, speaks full sentences EXTREMITIES : Normal inspection, Normal range of motion, no edema. No clubbing or cyanosis NEUROLOGICAL: Cranial nerves II through XII grossly intact. Normal speech, normal gait, no focal sensorimotor deficits SKIN: Warm, Dry, normal turgor, no rashes or lesions noted Medical Decision Making - Medical Decision Making 06/29/19 04:04 38 yo M with h/o Etoh abuse, who presents from [facility] with complaint by staff that he refused to provide urine. HR 100, vitals otherwise wnl, AF, alert. Patient non cooperative with history and exam. When attempting to obtain physical exam, patient refuses on multiple attempts. Patient continually refuses urine sample. Patient states that he would rather leave, and clearly communicates. Patient seen ambulating clearly, and alert. Ed Course: 06/29/19 04:09 Patient leaves AMA despite risk and benefit discussion of potential to have undiagnosed illness or medical diagnosis that if left untreated could lead to multiple complications including, permanent disability and . Patient was advised that if he should reconsider then he should turn to the emergency department for further evaluation. Discharge - Discharge Information Problems reviewed: Yes Clinical Impression/Diagnosis: Alcohol abuse Condition: Stable Disposition: AGAINST MEDICAL ADVICE - Admission No - Follow up/Referral - Patient Discharge Instructions Patient Printed Discharge Instructions: DI for Alcohol Abuse Additional Instructions: Please return to the emergency department with any new or worsening symptoms or concerns. Please follow up with your primary care physician within 72 hours. As discussed you may have undiagnosed illness or medical diagnosis that if left untreated can lead to multiple complications including, but not limited to permanent disability and . Should you reconsider you should turn to the emergency department for evaluation. - Post Discharge Activity
[2019-06-29 03:59] VITALS: BP 108/69; PULSE 100; TEMP 98.1; BMI 19.9
[2019-06-29 05:10] LABS: EPI CELLS 0.8 /HPF (0-5/HPF); HYALINE CASTS 9 /lpf (0-8); PH,URINE 5.5 (5.0-8.0); URINE APPEARANCE CLOUDY; URINE BILIRUBIN NEGATIVE (NEGATIVE); URINE COLOR DK YELLOW; URINE GLUCOSE (UA) NEGATIVE (NEGATIVE); URINE KETONE 1+ (NEGATIVE); URINE LEUK ESTERASE NEGATIVE (NEGATIVE); URINE NITRITE NEGATIVE (NEGATIVE); URINE PROTEIN 2+ (NEGATIVE); URINE WBC 1 /hpf (0-5)
[2019-06-29 05:24] LABS: COCAINE, UR NEGATIVE ng/ml (CUTOFF=300); METHADONE, UR NEGATIVE ng/ml (CUTOFF=300); OPIATES, URI NEGATIVE ng/ml (CUTOFF=300); PHENCYCLIDINE,URINE NEGATIVE ng/ml (CUTOFF=25); URINE AMPHETAMINES NEGATIVE ng/ml (CUTOFF=500); URINE BARBITURATES NEGATIVE ng/ml (CUTOFF=200)
[2019-06-29 05:30] LABS: URINE BENZODIAZEPINES POSITIVE ng/ml (CUTOFF=200)
== END 2019-06-29 04:37 | disposition left against medical advice (07) ==
LOC: JER 03:44
DX: F10.10 Alcohol abuse, uncomplicated (principal); F17.210 Nicotine dependence, cigarettes, uncomplicated; J45.909 Unspecified asthma, uncomplicated
CPT/HCPCS: 80307; 81003; 99283-25

== ENCOUNTER 2020-08-17 12:36 | Inpatient (IN) | payer OTHER ==
[2020-08-17 16:34] VITALS: BMI 18.4
[2020-08-17] MEDS ORDERED: MAG HYDROX/AL HYDROX/SIMETH 30 ML UNIT-DOSE CUP PO PRN (18:06)
[2020-08-17] MEDS ORDERED: MAGNESIUM HYDROX 2400MG/30ML ORAL SUSPENSION 30 ML CUP PO PRN (18:06)
[2020-08-17] MEDS ORDERED: MAGNESIUM CITRATE 300 ML BOTTLE PO PRN (18:06)
[2020-08-17] MEDS ORDERED: METHOCARBAMOL 500 MG TABLET PO PRN (18:06)
[2020-08-17] MEDS ORDERED: ACETAMINOPHEN 325 MG TABLET (FP) PO PRN ×2 (18:06)
[2020-08-17] MEDS ORDERED: BISMUTH SUBSALICYLATE 524 MG/30 ML UD PO PRN (18:06)
[2020-08-17] MEDS ORDERED: MENTHOL/PHENOL 1 EACH UD MM PRN (18:06)
[2020-08-17] MEDS ORDERED: ONDANSETRON *ODT* 4 MG TABLET SL PRN (18:06)
[2020-08-17] MEDS ORDERED: LORazepam 1 MG TABLET PO PRN (18:06)
[2020-08-17] MEDS ORDERED: IBUPROFEN 400 MG TABLET (FP) PO PRN (18:06)
[2020-08-17] MEDS ORDERED: COLLOIDAL OATMEAL 1 BAR EACH TP PRN (18:20)
[2020-08-17] MEDS ORDERED: ALBUTEROL SO4 HFA INHALER IH PRN (18:20)
[2020-08-17] MEDS: PRENATAL VITAMINS W/ FOLIC ACID TABLET (FP) PO SCH (19:02)
[2020-08-17] MEDS: LORazepam 2 MG TABLET PO SCH (22:10)
[2020-08-17] MEDS: hydrOXYzine PAMOATE 25 MG CAPSULE (FP) PO SCH (22:11)
[2020-08-17] MEDS: MELATONIN 5 MG TABLETS PO SCH (22:11)
[2020-08-17] MEDS: THIAMINE HCL 100 MG TABLET (FP) PO SCH (22:11)
[2020-08-18] MEDS: hydrOXYzine PAMOATE 25 MG CAPSULE (FP) PO SCH ×5 (06:22→22:36)
[2020-08-18] MEDS: LORazepam 2 MG TABLET PO SCH ×4 (06:23→22:37)
[2020-08-18] MEDS: NICOTINE POLACRILEX 4 MG GUM BUC PRN ×2 (06:24→17:56)
[2020-08-18] MEDS: NICOTINE 21 MG/24 HOURS TOPICAL PATCH TD SCH (10:27)
[2020-08-18] MEDS: PRENATAL VITAMINS W/ FOLIC ACID TABLET (FP) PO SCH (10:27)
[2020-08-18 11:09] LABS: HEMATOCRIT 34.9 % (35.4-49); HEMOGLOBIN 11.4 GM/dL (11.7-16.9); MCH 30.7 pg (25.7-33.7); MCHC 32.7 g/dl (32.0-35.9); MEAN CELL VOLUME 93.8 fl (80-96); MEAN PLT VOLUME 8.8 fl (7.5-11.1); PLATELET COUNT 233 K/MM3 (134-434); RBC 3.72 M/mm3 (4.00-5.60); RDW 14.2 % (11.9-15.9); WHITE BLOOD COUNT 3.7 K/mm3 (4.0-10.0)
[2020-08-18 11:24] LABS: BLOOD UREA NITROGEN 11.4 mg/dL (7-18); CALCIUM 9.5 mg/dL (8.5-10.1)
[2020-08-18 11:28] LABS: BILIRUBIN,TOTAL 0.5 mg/dL (0.2-1); CREATININE 0.7 mg/dL (0.55-1.3); TOT PROT 7.5 g/dl (6.4-8.2)
[2020-08-18] MEDS: THIAMINE HCL 100 MG TABLET (FP) PO SCH (22:36)
[2020-08-18] MEDS: MELATONIN 5 MG TABLETS PO SCH (22:37)
[2020-08-19] MEDS: hydrOXYzine PAMOATE 25 MG CAPSULE (FP) PO SCH ×5 (06:33→22:34)
[2020-08-19] MEDS: LORazepam 1 MG TABLET PO SCH ×2 (06:33→10:50)
[2020-08-19] MEDS: NICOTINE POLACRILEX 4 MG GUM BUC PRN ×2 (06:34→21:07)
[2020-08-19] MEDS: NICOTINE 21 MG/24 HOURS TOPICAL PATCH TD SCH (10:25)
[2020-08-19] MEDS: PRENATAL VITAMINS W/ FOLIC ACID TABLET (FP) PO SCH (10:25)
[2020-08-19] MEDS: chlordiazePOXIDE HCL 10 MG CAPSULE PO SCH ×2 (14:00→22:35)
[2020-08-19] MEDS: chlordiazePOXIDE HCL 25 MG CAPSULE PO PRN (17:35)
[2020-08-19] MEDS: MELATONIN 5 MG TABLETS PO SCH (22:34)
[2020-08-19] MEDS: THIAMINE HCL 100 MG TABLET (FP) PO SCH (22:34)
[2020-08-20] MEDS ORDERED: LORazepam 0.5 MG TABLET PO PRN
[2020-08-20] MEDS ORDERED: LORazepam 0.5 MG TABLET PO SCH (05:00)
[2020-08-20] MEDS: hydrOXYzine PAMOATE 25 MG CAPSULE (FP) PO SCH ×3 (05:10→15:30)
[2020-08-20] MEDS: chlordiazePOXIDE HCL 10 MG CAPSULE PO SCH ×2 (05:11→16:25)
[2020-08-20] MEDS: NICOTINE POLACRILEX 4 MG GUM BUC PRN ×2 (07:34→13:06)
[2020-08-20] MEDS: PRENATAL VITAMINS W/ FOLIC ACID TABLET (FP) PO SCH (10:14)
[2020-08-20] MEDS: NICOTINE 21 MG/24 HOURS TOPICAL PATCH TD SCH (10:14)
[2020-08-20] MEDS: chlordiazePOXIDE HCL 25 MG CAPSULE PO PRN (10:15)
[2020-08-20 14:48] VITALS: BP 118/62; PULSE 102; TEMP 100.9
[2020-08-21] MEDS ORDERED: chlordiazePOXIDE HCL 10 MG CAPSULE PO PRN
[2020-08-21] MEDS ORDERED: LORazepam 0.5 MG TABLET PO ONE (05:00)
[2020-08-21] MEDS ORDERED: chlordiazePOXIDE HCL 10 MG CAPSULE PO SCH (05:00)
[2020-08-21] MEDS ORDERED: chlordiazePOXIDE HCL 10 MG CAPSULE PO ONE (05:00)
[2020-08-22] MEDS ORDERED: chlordiazePOXIDE HCL 10 MG CAPSULE PO SCH (05:00)
== END 2020-08-20 16:24 | disposition home or self-care (01) | DRG 775 ==
LOC: YASAS 12:36 → Y6N 18:15
PROVIDERS: ADMIT Allergy & Immunology; ATTEND Allergy & Immunology
PROC: HZ2ZZZZ Detoxification Services for Substance Abuse Treatment (ICD-10-PCS; principal; 2020-08-17)
DX: F10.230 Alcohol dependence with withdrawal, uncomplicated (principal); F17.210 Nicotine dependence, cigarettes, uncomplicated; F10.24 Alcohol dependence with alcohol-induced mood disorder; F10.282 Alcohol dependence with alcohol-induced sleep disorder; D64.9 Anemia, unspecified; D72.819 Decreased white blood cell count, unspecified; J45.909 Unspecified asthma, uncomplicated; K70.9 Alcoholic liver disease, unspecified; M54.42 Lumbago with sciatica, left side; M54.41 Lumbago with sciatica, right side; G89.29 Other chronic pain; R74.8 Abnormal levels of other serum enzymes; R74.01 Elevation of levels of liver transaminase levels; Z86.69 Personal history of other diseases of the nervous system and sense organs; Z56.0 Unemployment, unspecified; Z59.0 Homelessness
CPT/HCPCS: 36415; 80053; 84075; 85027; 86780; 93005; 93010; C9803; U0003; U0005

== ENCOUNTER 2020-09-18 13:32 | Inpatient (IN) | payer OTHER ==
[2020-09-18 15:57] VITALS: BMI 18.7
[2020-09-18] MEDS ORDERED: MENTHOL/PHENOL 1 EACH UD MM PRN (17:11)
[2020-09-18] MEDS ORDERED: BISMUTH SUBSALICYLATE 524 MG/30 ML PO PRN (17:11)
[2020-09-18] MEDS ORDERED: MAGNESIUM CITRATE 300 ML BOTTLE PO PRN (17:11)
[2020-09-18] MEDS ORDERED: METHOCARBAMOL 500 MG TABLET PO PRN (17:11)
[2020-09-18] MEDS ORDERED: ONDANSETRON *ODT* 4 MG TABLET SL PRN (17:11)
[2020-09-18] MEDS ORDERED: ACETAMINOPHEN 325 MG TABLET (FP) PO PRN ×2 (17:11)
[2020-09-18] MEDS ORDERED: IBUPROFEN 400 MG TABLET (FP) PO PRN (17:11)
[2020-09-18] MEDS ORDERED: MAGNESIUM HYDROX 2400MG/30ML ORAL SUSPENSION 30 ML CUP PO PRN (17:11)
[2020-09-18] MEDS ORDERED: MAG HYDROX/AL HYDROX/SIMETH 30 ML UNIT-DOSE CUP PO PRN (17:11)
[2020-09-18] MEDS ORDERED: diazePAM 5 MG TABLET PO PRN (17:13)
[2020-09-18] MEDS: diazePAM 5 MG TABLET PO SCH ×2 (18:25→22:37)
[2020-09-18] MEDS ORDERED: MELATONIN 5 MG TABLETS PO SCH (22:00)
[2020-09-18] MEDS: THIAMINE HCL 100 MG TABLET (FP) PO SCH (22:37)
[2020-09-19] MEDS: diazePAM 5 MG TABLET PO SCH ×4 (05:24→23:26)
[2020-09-19 10:01] LABS: ALBUMIN 4.2 g/dl (3.4-5.0)
[2020-09-19 10:03] LABS: CALCIUM 9.1 mg/dL (8.5-10.1)
[2020-09-19 10:04] LABS: CREATININE 0.7 mg/dL (0.55-1.3)
[2020-09-19 10:05] LABS: TOT PROT 7.5 g/dl (6.4-8.2)
[2020-09-19 10:10] LABS: HEMATOCRIT 35.3 % (35.4-49); HEMOGLOBIN 11.6 GM/dL (11.7-16.9); MCH 30.8 pg (25.7-33.7); MCHC 32.9 g/dl (32.0-35.9); MEAN CELL VOLUME 93.5 fl (80-96); MEAN PLT VOLUME 8.7 fl (7.5-11.1); PLATELET COUNT 224 K/MM3 (134-434); RBC 3.77 M/mm3 (4.00-5.60); RDW 13.5 % (11.9-15.9); WHITE BLOOD COUNT 4.1 K/mm3 (4.0-10.0)
[2020-09-19] MEDS: PRENATAL VITAMINS W/ FOLIC ACID TABLET (FP) PO SCH (10:49)
[2020-09-19] MEDS ORDERED: SUVOREXANT 10 MG TABLET PO PRN (22:00)
[2020-09-19] MEDS: THIAMINE HCL 100 MG TABLET (FP) PO SCH (23:26)
[2020-09-20] MEDS: diazePAM 5 MG TABLET PO SCH ×3 (06:21→22:53)
[2020-09-20] MEDS: PRENATAL VITAMINS W/ FOLIC ACID TABLET (FP) PO SCH (10:57)
[2020-09-20] MEDS: NICOTINE POLACRILEX 2 MG GUM BUC PRN ×2 (13:42→19:17)
[2020-09-20] MEDS: hydrOXYzine PAMOATE 25 MG CAPSULE (FP) PO PRN (19:17)
[2020-09-20] MEDS: THIAMINE HCL 100 MG TABLET (FP) PO SCH (22:53)
[2020-09-21] MEDS: diazePAM 5 MG TABLET PO SCH ×2 (06:21→18:28)
[2020-09-21 08:06] LABS: SARS-CoV-2 NAA Not Detected (Not Detected)
[2020-09-21] MEDS: PRENATAL VITAMINS W/ FOLIC ACID TABLET (FP) PO SCH (10:23)
[2020-09-21] MEDS: hydrOXYzine PAMOATE 25 MG CAPSULE (FP) PO PRN (10:24)
[2020-09-21] MEDS: NICOTINE POLACRILEX 2 MG GUM BUC PRN (10:25)
[2020-09-21] MEDS: THIAMINE HCL 100 MG TABLET (FP) PO SCH (23:36)
[2020-09-22] MEDS ORDERED: diazePAM 5 MG TABLET PO ONE (06:00)
[2020-09-22 07:22] VITALS: BP 110/60; PULSE 94; TEMP 97.6
[2020-09-22] MEDS: PRENATAL VITAMINS W/ FOLIC ACID TABLET (FP) PO SCH (09:53)
[2020-09-22] MEDS: hydrOXYzine PAMOATE 25 MG CAPSULE (FP) PO PRN (09:53)
== END 2020-09-22 11:35 | disposition other institution (70) | DRG 775 ==
LOC: YASAS 13:32 → Y6N 17:27
PROVIDERS: ADMIT Allergy & Immunology; ATTEND Allergy & Immunology
PROC: HZ2ZZZZ Detoxification Services for Substance Abuse Treatment (ICD-10-PCS; principal; 2020-09-18)
DX: F10.230 Alcohol dependence with withdrawal, uncomplicated (principal); F10.220 Alcohol dependence with intoxication, uncomplicated; F10.280 Alcohol dependence with alcohol-induced anxiety disorder; F10.282 Alcohol dependence with alcohol-induced sleep disorder; F17.210 Nicotine dependence, cigarettes, uncomplicated; D64.9 Anemia, unspecified; J45.909 Unspecified asthma, uncomplicated; G40.89 Other seizures; M54.41 Lumbago with sciatica, right side; M54.42 Lumbago with sciatica, left side; Z56.0 Unemployment, unspecified; Z59.0 Homelessness
CPT/HCPCS: 36415; 80053; 85027; 86780; C9803; U0003; U0005

== ENCOUNTER 2023-06-08 20:22 | Inpatient (IN) | payer OTHER ==
[2023-06-08 20:43] VITALS: BMI 19.9
[2023-06-08] MEDS ORDERED: P-EPHED 60MG/TRIPROLIDI 2.5MG TABLET PO PRN (22:37)
[2023-06-08] MEDS ORDERED: BISMUTH SUBSALICYLATE 524 MG/30 ML PO PRN (22:37)
[2023-06-08] MEDS ORDERED: BENZONATATE 200 MG CAPSULE PO PRN (22:37)
[2023-06-08] MEDS ORDERED: guaiFENesin 600 MG TABLET.ER (FP) PO PRN (22:37)
[2023-06-08] MEDS ORDERED: NICOTINE POLACRILEX 2 MG LOZENGE BC PRN (22:37)
[2023-06-08] MEDS ORDERED: METHOCARBAMOL 500 MG TABLET PO PRN (22:37)
[2023-06-08] MEDS ORDERED: POLYETHYLENE GLYCOL (HEALTHYLAX) 3350 17 GM PACKET PO PRN (22:37)
[2023-06-08] MEDS ORDERED: LOPERAMIDE HCL 2 MG CAPSULE PO PRN (22:37)
[2023-06-08] MEDS ORDERED: DICYCLOMINE HCL 10 MG CAPSULE PO PRN (22:37)
[2023-06-08] MEDS ORDERED: MAGNESIUM HYDROX 2400MG/30ML ORAL SUSPENSION 30 ML CUP PO PRN (22:37)
[2023-06-08] MEDS ORDERED: IBUPROFEN 400 MG TABLET (FP) PO PRN (22:37)
[2023-06-08] MEDS ORDERED: BENZOCAINE/MENTHOL (CHLORASEPTIC ) LOZENGE MM PRN (22:37)
[2023-06-08] MEDS ORDERED: MAG HYDROX/AL HYDROX/SIMETH 30 ML UNIT-DOSE CUP PO PRN (22:37)
[2023-06-08] MEDS ORDERED: chlordiazePOXIDE HCL 25 MG CAPSULE PO PRN (22:39)
[2023-06-08] MEDS ORDERED: chlordiazePOXIDE HCL 25 MG CAPSULE ONE (23:46)
[2023-06-08] MEDS: chlordiazePOXIDE HCL 25 MG CAPSULE PO SCH (23:51)
[2023-06-09] MEDS: PRENATAL VITAMINS W/ FOLIC ACID TABLET (FP) PO SCH (10:39)
[2023-06-09] MEDS: NICOTINE 7 MG/24 HOURS TOPICAL PATCH TD SCH (10:44)
[2023-06-09] MEDS: ONDANSETRON *ODT* 4 MG TABLET SL PRN (10:44)
[2023-06-09 11:35] LABS: POTASSIUM 4.1 mmol/L (3.5-5.1)
[2023-06-09 11:37] LABS: HEMATOCRIT 32.6 % (35.4-49); HEMOGLOBIN 11.2 GM/dL (11.7-16.9); MCH 31.7 pg (25.7-33.7); MCHC 34.4 g/dl (32.0-35.9); MEAN CELL VOLUME 92.2 fl (80-96); MEAN PLT VOLUME 8.2 fl (7.5-11.1); PLATELET COUNT 316 10^3/uL (134-434); RBC 3.54 M/mm3 (4.00-5.60); RDW 13.7 % (11.9-15.9); WHITE BLOOD COUNT 5.2 K/mm3 (4.0-10.0)
[2023-06-09 11:38] LABS: ALBUMIN 3.6 g/dl (3.4-5.0); BLOOD UREA NITROGEN 10.9 mg/dL (7-18); CALCIUM 9.3 mg/dL (8.5-10.1)
[2023-06-09 11:42] LABS: CREATININE 0.7 mg/dL (0.55-1.3)
[2023-06-09 11:43] LABS: BILIRUBIN,TOTAL 0.4 mg/dL (0.2-1); TOT PROT 7.4 g/dl (6.4-8.2)
[2023-06-09] MEDS: ACETAMINOPHEN 325 MG TABLET (FP) PO PRN (18:22)
[2023-06-09] MEDS: OLANZapine 5 MG TABLET PO SCH (22:11)
[2023-06-09] MEDS: THIAMINE HCL 100 MG TABLET (FP) PO SCH (22:19)
[2023-06-09] MEDS: MELATONIN 5 MG TABLETS PO SCH (22:19)
[2023-06-10] MEDS: chlordiazePOXIDE HCL 25 MG CAPSULE PO SCH (06:04)
[2023-06-10] MEDS: ESCITALOPRAM OXALATE 10 MG TABLET PO SCH (10:21)
[2023-06-10] MEDS: NICOTINE POLACRILEX 2 MG GUM BUC PRN (10:22)
[2023-06-10] MEDS: IBUPROFEN 600 MG TABLET (FP) PO PRN (15:35)
[2023-06-10] MEDS: BENZOCAINE 20 % GEL TUBE MM PRN (16:32)
[2023-06-11] MEDS ORDERED: chlordiazePOXIDE HCL 10 MG CAPSULE PO PRN
[2023-06-11] MEDS: chlordiazePOXIDE HCL 10 MG CAPSULE PO SCH (05:58)
[2023-06-11] MEDS: AMOXICILLIN 500 MG CAPSULE (FP) PO SCH (13:29)
[2023-06-12] MEDS: chlordiazePOXIDE HCL 10 MG CAPSULE PO SCH (05:49)
[2023-06-12 06:14] VITALS: RESP 16
[2023-06-12 08:39] VITALS: BP 112/68; PULSE 89; TEMP 98.4
[2023-06-13] MEDS ORDERED: chlordiazePOXIDE HCL 10 MG CAPSULE PO ONE (05:00)
== END 2023-06-12 08:48 | disposition home or self-care (01) | DRG 775 ==
LOC: YASAS 20:22 → Y3N 23:17
PROVIDERS: ADMIT Allergy & Immunology; ATTEND Surgery
PROC: HZ2ZZZZ Detoxification Services for Substance Abuse Treatment (ICD-10-PCS; principal; 2023-06-08)
DX: F10.230 Alcohol dependence with withdrawal, uncomplicated (principal); F17.210 Nicotine dependence, cigarettes, uncomplicated; F19.24 Other psychoactive substance dependence with psychoactive substance-induced mood disorder; F41.8 Other specified anxiety disorders; U07.1 COVID-19; J45.20 Mild intermittent asthma, uncomplicated; K04.7 Periapical abscess without sinus; M54.50 Low back pain, unspecified; G89.29 Other chronic pain; Z28.310 Unvaccinated for COVID-19; Z28.9 Immunization not carried out for unspecified reason; Z86.69 Personal history of other diseases of the nervous system and sense organs
CPT/HCPCS: 36415; 80053; 85027; 86780; 87635; 93005; 93010; Q0162